=== PATIENT | female | born 1940 | race African-American/Black ===

== ENCOUNTER 2018-11-22 21:29 | Inpatient (IN) | payer MEDICARE ==
--- NOTE | 2018-11-23 01:01 | ED Physician Chart ---
ED Chief Complaint/HPI - Patient Information Allergies:: Allergies Allergy/AdvReac Type Severity Reaction Status Date / Time No Known Allergies Allergy Verified 11/22/18 21:49 Vitals:: Vital Signs - 8 hr 11/23/18 11/23/18 11/23/18 03:20 06:07 06:19 Temp 98.2 F 97.5 F 97.5 F HR 97 92 90 RR 18 15 15 BP 182/85 168/83 168/83 O2 Sat % 99 95 11/23/18 06:33 Temp 97.9 F HR 76 RR 18 BP 159/68 O2 Sat % <Ced Bernabe - Last Filed: 11/23/18 11:20> - Patient Information Date Seen:: 11/22/18 Time Seen:: 21:25 Chief Complaint:: [facility] prior to daughter notification Allergies:: Allergies Allergy/AdvReac Type Severity Reaction Status Date / Time No Known Allergies Allergy Verified 11/22/18 21:49 Vitals:: Vital Signs - 8 hr 11/22/18 21:30 Temp 98.1 F HR 100 RR 20 BP 161/82 O2 Sat % 98 <Domingo Feng - Last Filed: 12/06/18 23:14> ED Review of Systems - Review of Systems General/Constitutional: No fever (unable to accurate relate) <Domingo Feng - Last Filed: 12/06/18 23:14> ED Past Medical History - Past Medical History Obtainable: No Past Medical History: Dementia <Domingo Feng - Last Filed: 12/06/18 23:14> Family Medical History - Family Member Mother History Unknown: Yes <Domingo Feng - Last Filed: 12/06/18 23:14> ED Physical Exam - Physical Examination General/Constitutional: No distress, Non-toxic appearing Head: Atraumatic Eyes: Lids, conjuctiva normal Skin: Nl inspection ENMT: External ears, nose nl Neck: Nontender Respiratory: Nl effort/Exclusion Cardio Vascular: RRR GI: No tenderness/rebounding/guarding Extremities: Full ROM <Domingo Feng - Last Filed: 12/06/18 23:14> ED Labs/Radiology/EKG Results - Lab Results Results: Laboratory Tests 11/23/18 10:38 WBC 7.7 RBC 5.55 H Hgb 14.5 Hct 45.1 MCV 81.3 MCH 26.2 L MCHC Differential 32.2 RDW 13.5 Plt Count 275 MPV 9.1 Neutrophils % 60.7 Lymphocytes % 30.2 Monocytes % 7.9 Eosinophils % 0.9 Basophils % 0.3 Comments:: Reviewed - EKG Interpretations EKG Time:: 10:51 Rate & Rhythm: 71; NSR Comments:: non-specific st-t changes <Ced Bernabe - Last Filed: 11/23/18 11:20> ED Assessment - Assessment General Assessment: no distress in er talked to psychiatrist usman given option send back if family so wants talked to daughter requests pt back to same closer location daughter later request no change in er status until her presence in er <Domingo Feng - Last Filed: 12/06/18 23:14> ED Septic Shock - <6hrs of presentation: Vital Signs: Vital Signs - 8 hr 11/23/18 11/23/18 11/23/18 03:20 06:07 06:19 Temp 98.2 F 97.5 F 97.5 F HR 97 92 90 RR 18 15 15 BP 182/85 168/83 168/83 O2 Sat % 99 95 11/23/18 06:33 Temp 97.9 F HR 76 RR 18 BP 159/68 O2 Sat % <Ced Bernabe - Last Filed: 11/23/18 11:20> - <6hrs of presentation: Vital Signs: Vital Signs - 8 hr 11/22/18 21:30 Temp 98.1 F HR 100 RR 20 BP 161/82 O2 Sat % 98 <Domingo Feng - Last Filed: 12/06/18 23:14> ED Reassessment (Disposition) - Reassessment Reassessment Condition:: Improved - Diagnosis Diagnosis:: Agitation; Medical Clearance; Psychosis; UTI; Bipolar Disorder - Aftercare/Follow up Instructions Aftercare/Follow-Up Instructions:: Counseled pt regarding lab results/diagnosis & need follow up, Counseled pt & family regarding lab results/diagnosis & need follow up - Patient Disposition Discharge/Transfer:: Acute Care w/in this hosp Admitted to:: [facility] Condition at Disposition:: Stable, Improved <Ced Bernabe - Last Filed: 11/23/18 11:20> - Reassessment Reassessment Condition:: Unchanged - Patient Disposition Discharge/Transfer:: Residential/Boarding Care <Domingo Feng - Last Filed: 12/06/18 23:14>
[2018-11-23 10:46] LABS: % BASOPHILS 0.3 % (0.0-2.0); % EOSINOPHILS 0.9 % (0.0-5.0); % LYMPHOCYTES 30.2 % (20.0-50.0); % MONOCYTES 7.9 % (2.0-10.0); % NEUTROPHILS 60.7 % (40.0-80.0); EOSINOPHILE ABSOLUTE 0.1 Th/cmm (0.1-0.4); HEMATOCRIT 45.1 % (41.0-60); HEMOGLOBIN 14.5 gm/dL (12-16); LYMPHOCYTE ABSOLUTE 2.3 Th/cmm (1.5-3.0); MEAN CELL VOLUME 81.3 fl (81-100); MEAN CORPUSCULAR HEMOGLOBIN 26.2 pg (27.0-31.0); MEAN CORPUSCULAR HGB CONC 32.2 pg (28.0-36.0); MEAN PLATELET VOLUME 9.1 fl; MONOCYTE ABSOLUTE 0.6 Th/cmm (0.3-1.0); NEUTROPHILE ABSOLUTE 4.7 Th/cmm (1.8-8.0); PLATELET COUNT 275 Th/cmm (150-400); RED BLOOD COUNT 5.55 Mil/cmm (3.80-5.20); RED CELL DISTRIBUTION WIDTH 13.5 % (11.5-20.0); WHITE BLOOD COUNT 7.7 Th/cmm (4.8-10.8)
[2018-11-23 10:55] LABS: URINE SOURCE CLEAN C
[2018-11-23 10:59] LABS: URINE BILIRUBIN NEGATIVE (NEGATIVE); URINE BLOOD TRACE (NEGATIVE); URINE GLUCOSE (UA) NEGATIVE (NEGATIVE); URINE KETONE NEGATIVE (NEGATIVE); URINE LEUKOCYTE ESTERASE MODERATE (NEGATIVE); URINE MICROSCOPIC INDICATED? YES; URINE NITRATE NEGATIVE (NEGATIVE); URINE PH 5.5 (4.6 - 8.0); URINE PROTEIN NEGATIVE (NEGATIVE); URINE UROBILINOGEN 0.2 E.U./dL (0.2 - 1.0)
[2018-11-23 11:02] LABS: AMPHETAMINE URINE NEGATIVE (NEGATIVE); BARBITURATES URINE NEGATIVE (NEGATIVE); BENZODIAZEPINES QUAL URINE NEGATIVE (NEGATIVE); CANNABINOID THC NEGATIVE (NEGATIVE); COCAINE METABOLITE QUAL URINE NEGATIVE (NEGATIVE); METHADONE URINE NEGATIVE (NEGATIVE); METHAMPHETAMINES QUAL URINE NEGATIVE (NEGATIVE); OPIATES (MORPHINE) QUAL. URINE NEGATIVE (NEGATIVE); PHENCYCLIDINE (PCP) URINE NEGATIVE (NEGATIVE); TRICYCLICS (TCA) QUAL. URINE NEGATIVE (NEGATIVE)
[2018-11-23 11:07] LABS: ALB/GLOB RATIO 1.3 (1.0-1.8); ALBUMIN 4.6 gm/dL (3.7-5.3); ALKALINE PHOSPHATASE 79 U/L (34-104); ANION GAP 13.2 (7.0-16.0); BILIRUBIN,TOTAL 0.8 mg/dL (0.3-1.0); BUN - UREA NITROGEN 11 mg/dL (7-25); CALCIUM SERUM 10.2 mg/dL (8.6-10.3); CARBON DIOXIDE 29.3 mEq/L (21.0-31.0); CHLORIDE 103 mEq/L (98-107); CHOLESTEROL 199 mg/dL (<200); CREATININE - SERUM 0.8 mg/dL (0.6-1.2); GLUCOSE 105 mg/dL (70-105); HDL -HIGH DENSITY LIPOPROTEIN 49 mg/dL (23-92); POTASSIUM SERUM 3.5 mEq/L (3.5-5.1); SGOT 20 U/L (13-39); SGPT/ALT 14 U/L (7-52); SODIUM SERUM 142 mEq/L (136-145); TOTAL PROTEIN,SERUM 8.1 gm/dL (6.0-8.3); TRIGLYCERIDES 76 mg/dL (<150)
[2018-11-23 11:13] LABS: ACETAMINOPHEN < 10.0 ug/mL (10.0-30.0); SALICYLATES (ASPIRIN) < 25.0 mg/L (30.0-100.0)
[2018-11-23 11:20] LABS: URINE CLARITY CLOUDY (CLEAR); URINE COLOR YELLOW
[2018-11-23 11:21] LABS: URINE RBC 0-2 /hpf (0-5)
[2018-11-23 11:23] LABS: URINE BACTERIA FEW /hpf (NONE SEEN); URINE EPITHELIAL CELLS MODERATE /lpf (FEW); URINE WBC 50-100 /hpf (0-5)
[2018-11-23 13:46] VITALS: BP 160/70
[2018-11-23] MEDS ORDERED: Magnesium Hydroxide (MOM) 30 mL UDC PO PRN ×2 (13:47→15:16)
[2018-11-23] MEDS ORDERED: Maalox 30 mL Cup PO PRN (13:47)
[2018-11-23] MEDS ORDERED: Fleet Enema 135 mL RC PRN (15:16)
[2018-11-23] MEDS ORDERED: Acetaminophen 500 MG TAB PO PRN (15:16)
--- NOTE | 2018-11-23 15:24 | History and Physical ---
History of Present Illness - HPI Chief Complaint: psychosis HPI: 78 y/o female who presents to [facility] for change in behavior noted at the SNF with increased agitation. Initial labwork done in the ER revealed the following... WBC 7.7 H/H 14.5/45.1 plat 275 Na 142 K 3.5 Bun/Cr 11/0.8 glu 105 AST 20 ALT 14 Alk 79 TSH 1.33 chol 199 LDL 145 HDL 49 UA cloudy Leuko moderate WBCs 50-100 PMH Hyperlipidemia, HTN, Depression/Anxiety, Vital Signs: Last Vital Signs Temp 98.1 F 11/23/18 13:55 Pulse 82 11/23/18 13:55 Resp 18 11/23/18 13:55 BP 160/70 11/23/18 13:55 Pulse Ox 96 11/23/18 13:55 Past Medical History Cardiovascular: Report: HTN, Hyperlipidemia Pulmonary: Report: No Pertinent Hx BANK [employer]ER: Report: No Pertinent Hx GI: Report: No Pertinent Hx Psych: Report: Anxiety, Depression, Psychosis Musculoskeletal: Report: No Pertinent Hx Rheumatologic: Report: No pertinent Hx Infectious Disease: Report: No Pertinent Hx Renal/: Report: No Pertinent Hx Endocrine: Report: No Pertinent Hx Dermatology: Report: No Pertinent Hx Family Medical History - Family Member Mother History Unknown: Yes Social History Smoke: No Alcohol: None Drugs: None Lives: Correction - Medications Home Medications: Home Medication Medication Instructions Recorded Type Acetaminophen [Tylenol Extra 1,000 mg PO Q4HR PRN 11/22/18 History Strength] Acetaminophen [Tylenol] 325 mg PO Q4HR PRN 11/22/18 History Atorvastatin Calcium [Lipitor] 20 mg PO HS 11/22/18 History Bisacodyl [Dulcolax 10 Mg Supp] 10 mg RC DAILY PRN 11/22/18 History Fleet Enema 1 dose RC DAILY PRN 11/22/18 History Latanoprost/Pf [Latanoprost 0.005% 1 drop EACH EYE QPM 11/22/18 History Eye Drop] Lisinopril 10 mg PO DAILY 11/22/18 History Lorazepam [Ativan] 0.5 mg PO BID PRN 11/22/18 History Magnesium Hydroxide [Milk of 30 ml PO DAILY PRN 11/22/18 History Magnesia] Olanzapine 2.5 mg PO DAILY 11/22/18 History - Allergies Allergies/Adverse Reactions: Allergies Allergy/AdvReac Type Severity Reaction Status Date / Time No Known Allergies Allergy Verified 11/22/18 21:49 Review of Systems - Review of Systems Constitutional: Report: No Significant Eyes: Report: No Significant ENT: Report: No Significant Respiratory: Report: No Significant Cardiovascular: Report: No Significant Gastrointestinal: Report: No Significant Genitourinary: Report: No Significant Musculoskeletal: Report: No Significant Skin: Report: No Significant Neurological: Report: No Significant Physical Exam - Physical Exam HEENT: Report: Ears Nose Throat within normal limits, Pharnyx within normal limits Neck: Report: Within normal limits Cardiovascular Systems: Report: +s1/s2 noted, Regular, Rate and Rhythm Respiratory: Report: Breath Sounds are within normal limits Abdomen: Report: Non-tender to palpation Back: Report: Inspection of back is within normal limits. Extremities: Report: Non-tender to palpation. Skin: Report: Color of skin is within normal limits - Lab Results All Lab Results last 24 hours: Laboratory Results - last 24 hr 11/23/18 11/23/18 11/23/18 00:45 00:45 10:38 WBC 7.7 RBC 5.55 H Hgb 14.5 Hct 45.1 MCV 81.3 MCH 26.2 L MCHC Differential 32.2 RDW 13.5 Plt Count 275 MPV 9.1 Neutrophils % 60.7 Lymphocytes % 30.2 Monocytes % 7.9 Eosinophils % 0.9 Basophils % 0.3 Sodium Potassium Chloride Carbon Dioxide Anion Gap BUN Creatinine Est GFR ( Amer) Est GFR (Non-Af Amer) BUN/Creatinine Ratio Glucose Calcium Total Bilirubin AST ALT Alkaline Phosphatase Troponin I Total Protein Albumin Globulin Albumin/Globulin Ratio Triglycerides Cholesterol LDL Cholesterol Direct HDL Cholesterol TSH Urine Source CLEAN C Urine Color YELLOW Urine Clarity CLOUDY H Urine pH 5.5 Ur Specific [place] >= 1.030 Urine Protein NEGATIVE Urine Glucose (UA) NEGATIVE Urine Ketones NEGATIVE Urine Blood TRACE Urine Nitrate NEGATIVE Urine Bilirubin NEGATIVE Urine Urobilinogen 0.2 Ur Leukocyte Esterase MODERATE H Urine RBC 0-2 Urine WBC 50-100 H Ur Epithelial Cells MODERATE Urine Bacteria FEW Salicylates Urine Opiates Screen NEGATIVE Urine Methadone Screen NEGATIVE Acetaminophen Ur Barbiturates Screen NEGATIVE Ur Tricyclics Screen NEGATIVE Ur Phencyclidine Scrn NEGATIVE Amphetamines Screen NEGATIVE U Methamphetamines Scrn NEGATIVE U Benzodiazepines Scrn NEGATIVE U Cocaine Metab Screen NEGATIVE U Cannabinoids Screen NEGATIVE Ethyl Alcohol 11/23/18 11/23/18 11/23/18 10:38 10:38 10:38 WBC RBC Hgb Hct MCV MCH MCHC Differential RDW Plt Count MPV Neutrophils % Lymphocytes % Monocytes % Eosinophils % Basophils % Sodium 142 Potassium 3.5 Chloride 103 Carbon Dioxide 29.3 Anion Gap 13.2 BUN 11 Creatinine 0.8 Est GFR ( Amer) TNP Est GFR (Non-Af Amer) TNP BUN/Creatinine Ratio 13.8 Glucose 105 Calcium 10.2 Total Bilirubin 0.8 AST 20 ALT 14 Alkaline Phosphatase 79 Troponin I 0.01 Total Protein 8.1 Albumin 4.6 Globulin 3.5 Albumin/Globulin Ratio 1.3 Triglycerides 76 Cholesterol 199 LDL Cholesterol Direct 145 HDL Cholesterol 49 TSH 1.33 Urine Source Urine Color Urine Clarity Urine pH Ur Specific [place] Urine Protein Urine Glucose (UA) Urine Ketones Urine Blood Urine Nitrate Urine Bilirubin Urine Urobilinogen Ur Leukocyte Esterase Urine RBC Urine WBC Ur Epithelial Cells Urine Bacteria Salicylates < 25.0 L Urine Opiates Screen Urine Methadone Screen Acetaminophen < 10.0 L Ur Barbiturates Screen Ur Tricyclics Screen Ur Phencyclidine Scrn Amphetamines Screen U Methamphetamines Scrn U Benzodiazepines Scrn U Cocaine Metab Screen U Cannabinoids Screen Ethyl Alcohol < 10 - Assessment Assessment: psychosis HTN UTI Hyperlipidemia Depression/Anxiety - Plan Plan: admit to [facility] will continue home meds.
[2018-11-23] MEDS: Sulfamethoxazole/TMP 800/160mg Tab PO SCH (17:22)
[2018-11-23] MEDS: Atorvastatin Calcium 10 MG TAB PO SCH (23:50)
[2018-11-24] MEDS: Multivitamin Tab PO SCH (08:47)
[2018-11-24] MEDS: Sulfamethoxazole/TMP 800/160mg Tab PO SCH ×2 (08:47→16:59)
--- NOTE | 2018-11-24 12:49 | Psychiatric Evaluation ---
DATE OF SERVICE: 11/23/2018 The patient is admitted for increased confusion, combative behaviors, trying to harm others. HISTORY OF PRESENT ILLNESS: An 78-year-old female with worsening confusion and combative behavior, requiring restraints when she came to the Emergency Room. The patient was attacking staff, really aggressive and violent. The patient is apparently with a tendency of walking and pacing around the room, speaking in random phrases. On [id number], the patient is not talking to me whatsoever. The [place] [facility] facility is having trouble managing the patient because of her behaviors and would like medication adjustments. PAST PSYCHIATRIC HISTORY: At this point, it is unclear and we will try to increase collateral, concerns for an underlying dementia. SOCIAL HISTORY: Daughter involved. The patient is coming from a [place] [facility] facility. They are willing to take the patient back upon further stabilization. MEDICAL: Noted. MENTAL STATUS EXAMINATION: Stated age, refusing to speak with me, mumbling something, unclear thought processes, unclear SI or HI, unclear psychosis. Poor insight, poor judgment, poor impulse control. PROVISIONAL DIAGNOSES: Concerns for dementia and anxiety, unspecified; mood, unspecified. MEDICAL: Please see full H and P. ESTIMATED LENGTH OF STAY: 5-7 days. ASSESSMENT: The patient is requiring hospitalization, combative, aggressive, violent, trying to hurt staff, needing restraints. PLAN: Adjust and titrate medications, increase collateral. TREATMENT PLAN: Includes group as well as milieu therapy. CONDITIONS FOR DISCHARGE: Improved mood, improved affect, better control of her aggressive and violent behaviors. [facility]# [id number]
[2018-11-24] MEDS: Atorvastatin Calcium 10 MG TAB PO SCH (21:00)
--- NOTE | 2018-11-25 06:39 | General Progress Note ---
Subjective - Review of Systems Service Date: 11/25/18 Subjective: Awake, Aler, afebrile. VS T 97.5 P 74 BP 148/83 R 20 Objective - Results Result Diagrams: 11/23/18 10:38 11/23/18 10:38 Recent Labs: Laboratory Last Values WBC 7.7 Th/cmm (4.8-10.8) 11/23/18 10:38 RBC 5.55 Mil/cmm (3.80-5.20) H 11/23/18 10:38 Hgb 14.5 gm/dL (12-16) 11/23/18 10:38 Hct 45.1 % (41.0-60) 11/23/18 10:38 MCV 81.3 fl (81-100) 11/23/18 10:38 MCH 26.2 pg (27.0-31.0) L 11/23/18 10:38 MCHC Differential 32.2 pg (28.0-36.0) 11/23/18 10:38 RDW 13.5 % (11.5-20.0) 11/23/18 10:38 Plt Count 275 Th/cmm (150-400) 11/23/18 10:38 MPV 9.1 fl 11/23/18 10:38 Neutrophils % 60.7 % (40.0-80.0) 11/23/18 10:38 Lymphocytes % 30.2 % (20.0-50.0) 11/23/18 10:38 Monocytes % 7.9 % (2.0-10.0) 11/23/18 10:38 Eosinophils % 0.9 % (0.0-5.0) 11/23/18 10:38 Basophils % 0.3 % (0.0-2.0) 11/23/18 10:38 Sodium 142 mEq/L (136-145) 11/23/18 10:38 Potassium 3.5 mEq/L (3.5-5.1) 11/23/18 10:38 Chloride 103 mEq/L (98-107) 11/23/18 10:38 Carbon Dioxide 29.3 mEq/L (21.0-31.0) 11/23/18 10:38 Anion Gap 13.2 (7.0-16.0) 11/23/18 10:38 BUN 11 mg/dL (7-25) 11/23/18 10:38 Creatinine 0.8 mg/dL (0.6-1.2) 11/23/18 10:38 Est GFR ( Amer) TNP 11/23/18 10:38 Est GFR (Non-Af Amer) TNP 11/23/18 10:38 BUN/Creatinine Ratio 13.8 11/23/18 10:38 Glucose 105 mg/dL (70-105) 11/23/18 10:38 Calcium 10.2 mg/dL (8.6-10.3) 11/23/18 10:38 Total Bilirubin 0.8 mg/dL (0.3-1.0) 11/23/18 10:38 AST 20 U/L (13-39) 11/23/18 10:38 ALT 14 U/L (7-52) 11/23/18 10:38 Alkaline Phosphatase 79 U/L (34-104) 11/23/18 10:38 Troponin I 0.01 ng/mL (0.01-0.05) 11/23/18 10:38 Total Protein 8.1 gm/dL (6.0-8.3) 11/23/18 10:38 Albumin 4.6 gm/dL (3.7-5.3) 11/23/18 10:38 Globulin 3.5 gm/dL 11/23/18 10:38 Albumin/Globulin Ratio 1.3 (1.0-1.8) 11/23/18 10:38 Triglycerides 76 mg/dL (<150) 11/23/18 10:38 Cholesterol 199 mg/dL (<200) 11/23/18 10:38 LDL Cholesterol Direct 145 mg/dL (75-193) 11/23/18 10:38 HDL Cholesterol 49 mg/dL (23-92) 11/23/18 10:38 TSH 1.33 uIU/ml (0.34-5.60) 11/23/18 10:38 Urine Source CLEAN C 11/23/18 00:45 Urine Color YELLOW 11/23/18 00:45 Urine Clarity CLOUDY (CLEAR) H 11/23/18 00:45 Urine pH 5.5 (4.6 - 8.0) 11/23/18 00:45 Ur Specific [place] >= 1.030 (1.005-1.030) 11/23/18 00:45 Urine Protein NEGATIVE mg/dL (NEGATIVE) 11/23/18 00:45 Urine Glucose (UA) NEGATIVE mg/dL (NEGATIVE) 11/23/18 00:45 Urine Ketones NEGATIVE mg/dL (NEGATIVE) 11/23/18 00:45 Urine Blood TRACE (NEGATIVE) 11/23/18 00:45 Urine Nitrate NEGATIVE (NEGATIVE) 11/23/18 00:45 Urine Bilirubin NEGATIVE (NEGATIVE) 11/23/18 00:45 Urine Urobilinogen 0.2 E.U./dL (0.2 - 1.0) 11/23/18 00:45 Ur Leukocyte Esterase MODERATE (NEGATIVE) H 11/23/18 00:45 Urine RBC 0-2 /hpf (0-5) 11/23/18 00:45 Urine WBC 50-100 /hpf (0-5) H 11/23/18 00:45 Ur Epithelial Cells MODERATE /lpf (FEW) 11/23/18 00:45 Urine Bacteria FEW /hpf (NONE SEEN) 11/23/18 00:45 Salicylates < 25.0 mg/L (30.0-100.0) L 11/23/18 10:38 Urine Opiates Screen NEGATIVE (NEGATIVE) 11/23/18 00:45 Urine Methadone Screen NEGATIVE (NEGATIVE) 11/23/18 00:45 Acetaminophen < 10.0 ug/mL (10.0-30.0) L 11/23/18 10:38 Ur Barbiturates Screen NEGATIVE (NEGATIVE) 11/23/18 00:45 Ur Tricyclics Screen NEGATIVE (NEGATIVE) 11/23/18 00:45 Ur Phencyclidine Scrn NEGATIVE (NEGATIVE) 11/23/18 00:45 Amphetamines Screen NEGATIVE (NEGATIVE) 11/23/18 00:45 U Methamphetamines Scrn NEGATIVE (NEGATIVE) 11/23/18 00:45 U Benzodiazepines Scrn NEGATIVE (NEGATIVE) 11/23/18 00:45 U Cocaine Metab Screen NEGATIVE (NEGATIVE) 11/23/18 00:45 U Cannabinoids Screen NEGATIVE (NEGATIVE) 11/23/18 00:45 Ethyl Alcohol < 10 mg/dL (0-10) 11/23/18 10:38 - Physical Exam Vitals and I&O: Vital Signs Temp 97.5 F 11/25/18 06:00 Pulse 74 11/25/18 06:00 Resp 20 11/25/18 06:00 BP 148/83 11/25/18 06:00 Pulse Ox 99 11/25/18 06:00 Intake & Output 11/24/18 11/24/18 11/25/18 06:59 18:59 06:59 Intake Total 300 480 Balance 300 480 Intake: Oral 300 480 Other: # Voids 2 2 Active Medications: Current Medications Acetaminophen (Tylenol) 650 mg PO Q4HR PRN PRN Reason: Mild Pain / Temp above 100 Stop: 01/22/19 13:46 Acetaminophen (Tylenol) 325 mg PO Q4HR PRN PRN Reason: Pain (Moderate) Stop: 01/22/19 15:15 Acetaminophen (Tylenol Extra Strength) 1,000 mg PO Q4HR PRN PRN Reason: Pain (Moderate) Stop: 01/22/19 15:15 Last Admin: 11/24/18 08:49 Dose: 1,000 mg Al Hydrox/Mg Hydrox/Simethicone (Maalox) 30 ml PO Q4HR PRN PRN Reason: GI DISTRESS Stop: 01/22/19 13:46 Atorvastatin Calcium (Lipitor) 20 mg PO HS MATT Stop: 01/22/19 20:59 Last Admin: 11/24/18 21:00 Dose: 20 mg Bisacodyl (Dulcolax 10 Mg Supp) 10 mg RC DAILY PRN PRN Reason: IF MOM INEFFECTIVE Stop: 01/22/19 15:15 Latanoprost (Xalatan 0.005% Ophth Soln) 1 drop EACH EYE QPM MATT Stop: 01/22/19 16:59 Last Admin: 11/24/18 16:59 Dose: 1 drop Lisinopril (Zestril) 10 mg PO DAILY MATT Stop: 01/23/19 08:59 Last Admin: 11/24/18 08:47 Dose: Not Given Lorazepam (Ativan) 0.5 mg PO Q4HR PRN; Protocol PRN Reason: Agitation Stop: 12/23/18 13:46 Last Admin: 11/24/18 21:16 Dose: 0.5 mg Magnesium Hydroxide (Milk Of Magnesia) 30 ml PO HS PRN PRN Reason: Constipation Magnesium Hydroxide (Milk Of Magnesia) 30 ml PO DAILY PRN PRN Reason: Constipation Stop: 01/22/19 15:15 Memantine (Namenda) 5 mg PO DAILY [facility] Stop: 01/24/19 08:59 Multivitamins/Vitamin C (Theragran) 1 tab PO DAILY MATT Stop: 01/23/19 08:59 Last Admin: 11/24/18 08:47 Dose: 1 tab Sodium Phosphate (Fleet Enema) 135 ml RC DAILY PRN PRN Reason: IF DULCOLAX INEFFECTIVE Stop: 01/22/19 15:15 Trimethoprim/Sulfamethoxazole (Bactrim Ds) 1 tab PO BID [facility] Stop: 01/22/19 16:59 Last Admin: 11/24/18 16:59 Dose: 1 tab Zolpidem Tartrate (Ambien) 5 mg PO HS PRN PRN Reason: Insomnia Stop: 01/22/19 13:46 Last Admin: 11/24/18 21:16 Dose: 5 mg General: Alert, No acute distress HEENT: Atraumatic, PERRLA Neck: Supple Cardiovascular: Regular rate, Normal S1, Normal S2 Lungs: Clear to auscultation Abdomen: Bowel sounds Extremities: no Clubbing, no Cyanosis, no Edema Assessment/Plan - Assessment Assessment: psychosis HTN UTI + Hyperlipidemia Depression/Anxiety - Plan Plan: admit to [facility] will continue home meds.
[2018-11-25] MEDS: Multivitamin Tab PO SCH (08:36)
[2018-11-25] MEDS: Sulfamethoxazole/TMP 800/160mg Tab PO SCH ×2 (08:36→17:41)
--- NOTE | 2018-11-25 10:51 | Progress Notes ---
DATE: 11/24/2018 SUBJECTIVE: An 78-year-old female with worsening confusion, combative behaviors, had been attacking staff, very aggressive, violent. On [id number], the patient is AO to name only. She has no idea where she is or what is going on, states the year is 1989, does not know the month, had been refusing to speak with me yesterday, but today is answering questions, but she is completely confused about things. Per staff, grandson came to visit. No agitation, no irritability. The patient at times not eating, per staff AO to name only, confused, easily agitated, restless at times. History of dementia. ASSESSMENT: The patient is confused, AO to name, concerns for violent and aggressive behaviors. Given her violent and aggressive behaviors up on admission. Medications were noted. We will consider Sylvie Golden. [facility]# [id number]
[2018-11-25] MEDS: Atorvastatin Calcium 10 MG TAB PO SCH (21:53)
--- NOTE | 2018-11-26 06:07 | General Progress Note ---
Subjective - Review of Systems Service Date: 11/26/18 Subjective: Awake, Aler, afebrile. VS T 98.4 P 66 BP 133/66 R 20 Objective - Results Result Diagrams: 11/23/18 10:38 11/23/18 10:38 Recent Labs: Laboratory Last Values WBC 7.7 Th/cmm (4.8-10.8) 11/23/18 10:38 RBC 5.55 Mil/cmm (3.80-5.20) H 11/23/18 10:38 Hgb 14.5 gm/dL (12-16) 11/23/18 10:38 Hct 45.1 % (41.0-60) 11/23/18 10:38 MCV 81.3 fl (81-100) 11/23/18 10:38 MCH 26.2 pg (27.0-31.0) L 11/23/18 10:38 MCHC Differential 32.2 pg (28.0-36.0) 11/23/18 10:38 RDW 13.5 % (11.5-20.0) 11/23/18 10:38 Plt Count 275 Th/cmm (150-400) 11/23/18 10:38 MPV 9.1 fl 11/23/18 10:38 Neutrophils % 60.7 % (40.0-80.0) 11/23/18 10:38 Lymphocytes % 30.2 % (20.0-50.0) 11/23/18 10:38 Monocytes % 7.9 % (2.0-10.0) 11/23/18 10:38 Eosinophils % 0.9 % (0.0-5.0) 11/23/18 10:38 Basophils % 0.3 % (0.0-2.0) 11/23/18 10:38 Sodium 142 mEq/L (136-145) 11/23/18 10:38 Potassium 3.5 mEq/L (3.5-5.1) 11/23/18 10:38 Chloride 103 mEq/L (98-107) 11/23/18 10:38 Carbon Dioxide 29.3 mEq/L (21.0-31.0) 11/23/18 10:38 Anion Gap 13.2 (7.0-16.0) 11/23/18 10:38 BUN 11 mg/dL (7-25) 11/23/18 10:38 Creatinine 0.8 mg/dL (0.6-1.2) 11/23/18 10:38 Est GFR ( Amer) TNP 11/23/18 10:38 Est GFR (Non-Af Amer) TNP 11/23/18 10:38 BUN/Creatinine Ratio 13.8 11/23/18 10:38 Glucose 105 mg/dL (70-105) 11/23/18 10:38 Calcium 10.2 mg/dL (8.6-10.3) 11/23/18 10:38 Total Bilirubin 0.8 mg/dL (0.3-1.0) 11/23/18 10:38 AST 20 U/L (13-39) 11/23/18 10:38 ALT 14 U/L (7-52) 11/23/18 10:38 Alkaline Phosphatase 79 U/L (34-104) 11/23/18 10:38 Troponin I 0.01 ng/mL (0.01-0.05) 11/23/18 10:38 Total Protein 8.1 gm/dL (6.0-8.3) 11/23/18 10:38 Albumin 4.6 gm/dL (3.7-5.3) 11/23/18 10:38 Globulin 3.5 gm/dL 11/23/18 10:38 Albumin/Globulin Ratio 1.3 (1.0-1.8) 11/23/18 10:38 Triglycerides 76 mg/dL (<150) 11/23/18 10:38 Cholesterol 199 mg/dL (<200) 11/23/18 10:38 LDL Cholesterol Direct 145 mg/dL (75-193) 11/23/18 10:38 HDL Cholesterol 49 mg/dL (23-92) 11/23/18 10:38 TSH 1.33 uIU/ml (0.34-5.60) 11/23/18 10:38 Urine Source CLEAN C 11/23/18 00:45 Urine Color YELLOW 11/23/18 00:45 Urine Clarity CLOUDY (CLEAR) H 11/23/18 00:45 Urine pH 5.5 (4.6 - 8.0) 11/23/18 00:45 Ur Specific [place] >= 1.030 (1.005-1.030) 11/23/18 00:45 Urine Protein NEGATIVE mg/dL (NEGATIVE) 11/23/18 00:45 Urine Glucose (UA) NEGATIVE mg/dL (NEGATIVE) 11/23/18 00:45 Urine Ketones NEGATIVE mg/dL (NEGATIVE) 11/23/18 00:45 Urine Blood TRACE (NEGATIVE) 11/23/18 00:45 Urine Nitrate NEGATIVE (NEGATIVE) 11/23/18 00:45 Urine Bilirubin NEGATIVE (NEGATIVE) 11/23/18 00:45 Urine Urobilinogen 0.2 E.U./dL (0.2 - 1.0) 11/23/18 00:45 Ur Leukocyte Esterase MODERATE (NEGATIVE) H 11/23/18 00:45 Urine RBC 0-2 /hpf (0-5) 11/23/18 00:45 Urine WBC 50-100 /hpf (0-5) H 11/23/18 00:45 Ur Epithelial Cells MODERATE /lpf (FEW) 11/23/18 00:45 Urine Bacteria FEW /hpf (NONE SEEN) 11/23/18 00:45 Salicylates < 25.0 mg/L (30.0-100.0) L 11/23/18 10:38 Urine Opiates Screen NEGATIVE (NEGATIVE) 11/23/18 00:45 Urine Methadone Screen NEGATIVE (NEGATIVE) 11/23/18 00:45 Acetaminophen < 10.0 ug/mL (10.0-30.0) L 11/23/18 10:38 Ur Barbiturates Screen NEGATIVE (NEGATIVE) 11/23/18 00:45 Ur Tricyclics Screen NEGATIVE (NEGATIVE) 11/23/18 00:45 Ur Phencyclidine Scrn NEGATIVE (NEGATIVE) 11/23/18 00:45 Amphetamines Screen NEGATIVE (NEGATIVE) 11/23/18 00:45 U Methamphetamines Scrn NEGATIVE (NEGATIVE) 11/23/18 00:45 U Benzodiazepines Scrn NEGATIVE (NEGATIVE) 11/23/18 00:45 U Cocaine Metab Screen NEGATIVE (NEGATIVE) 11/23/18 00:45 U Cannabinoids Screen NEGATIVE (NEGATIVE) 11/23/18 00:45 Ethyl Alcohol < 10 mg/dL (0-10) 11/23/18 10:38 - Physical Exam Vitals and I&O: Vital Signs Temp 98.4 F 11/25/18 20:00 Pulse 66 11/25/18 20:00 Resp 20 11/25/18 20:00 BP 133/66 11/25/18 20:00 Pulse Ox 96 11/25/18 20:00 Intake & Output 11/25/18 11/25/18 11/26/18 06:59 18:59 06:59 Intake Total 480 100 Balance 480 100 Intake: Oral 480 100 Other: # Voids 2 Active Medications: Current Medications Acetaminophen (Tylenol) 650 mg PO Q4HR PRN PRN Reason: Mild Pain / Temp above 100 Stop: 01/22/19 13:46 Acetaminophen (Tylenol) 325 mg PO Q4HR PRN PRN Reason: Pain (Moderate) Stop: 01/22/19 15:15 Acetaminophen (Tylenol Extra Strength) 1,000 mg PO Q4HR PRN PRN Reason: Pain (Moderate) Stop: 01/22/19 15:15 Last Admin: 11/24/18 08:49 Dose: 1,000 mg Al Hydrox/Mg Hydrox/Simethicone (Maalox) 30 ml PO Q4HR PRN PRN Reason: GI DISTRESS Stop: 01/22/19 13:46 Atorvastatin Calcium (Lipitor) 20 mg PO HS MATT Stop: 01/22/19 20:59 Last Admin: 11/25/18 21:53 Dose: Not Given Bisacodyl (Dulcolax 10 Mg Supp) 10 mg RC DAILY PRN PRN Reason: IF MOM INEFFECTIVE Stop: 01/22/19 15:15 Latanoprost (Xalatan 0.005% Ophth Soln) 1 drop EACH EYE QPM MATT Stop: 01/22/19 16:59 Last Admin: 11/25/18 17:41 Dose: Not Given Lisinopril (Zestril) 10 mg PO DAILY MATT Stop: 01/23/19 08:59 Last Admin: 11/25/18 08:35 Dose: Not Given Lorazepam (Ativan) 0.5 mg PO Q4HR PRN; Protocol PRN Reason: Agitation Stop: 12/23/18 13:46 Last Admin: 11/24/18 21:16 Dose: 0.5 mg Magnesium Hydroxide (Milk Of Magnesia) 30 ml PO HS PRN PRN Reason: Constipation Magnesium Hydroxide (Milk Of Magnesia) 30 ml PO DAILY PRN PRN Reason: Constipation Stop: 01/22/19 15:15 Memantine (Namenda) 5 mg PO DAILY [facility] Stop: 01/24/19 08:59 Last Admin: 11/25/18 08:36 Dose: Not Given Multivitamins/Vitamin C (Theragran) 1 tab PO DAILY MATT Stop: 01/23/19 08:59 Last Admin: 11/25/18 08:36 Dose: Not Given Sodium Phosphate (Fleet Enema) 135 ml RC DAILY PRN PRN Reason: IF DULCOLAX INEFFECTIVE Stop: 01/22/19 15:15 Trimethoprim/Sulfamethoxazole (Bactrim Ds) 1 tab PO BID MATT Stop: 01/22/19 16:59 Last Admin: 11/25/18 17:41 Dose: 1 tab Zolpidem Tartrate (Ambien) 5 mg PO HS PRN PRN Reason: Insomnia Stop: 01/22/19 13:46 Last Admin: 11/24/18 21:16 Dose: 5 mg General: Alert, No acute distress HEENT: Atraumatic, PERRLA Neck: Supple Cardiovascular: Regular rate, Normal S1, Normal S2 Lungs: Clear to auscultation Abdomen: Bowel sounds Extremities: no Clubbing, no Cyanosis, no Edema Assessment/Plan - Assessment Assessment: psychosis HTN UTI +ESBL Hyperlipidemia Depression/Anxiety - Plan Plan: admit to [facility] will continue home meds.
[2018-11-26] MEDS: Multivitamin Tab PO SCH (09:52)
[2018-11-26] MEDS: Sulfamethoxazole/TMP 800/160mg Tab PO SCH ×2 (09:53→16:29)
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
[2018-11-26] MEDS: Atorvastatin Calcium 10 MG TAB PO SCH (21:11)
--- NOTE | 2018-11-27 06:17 | General Progress Note ---
Subjective - Review of Systems Service Date: 11/27/18 Subjective: Awake, Aler, afebrile. VS T 98.2 P 69 BP 134/73 R 18 Objective - Results Result Diagrams: 11/23/18 10:38 11/23/18 10:38 Recent Labs: Laboratory Last Values WBC 7.7 Th/cmm (4.8-10.8) 11/23/18 10:38 RBC 5.55 Mil/cmm (3.80-5.20) H 11/23/18 10:38 Hgb 14.5 gm/dL (12-16) 11/23/18 10:38 Hct 45.1 % (41.0-60) 11/23/18 10:38 MCV 81.3 fl (81-100) 11/23/18 10:38 MCH 26.2 pg (27.0-31.0) L 11/23/18 10:38 MCHC Differential 32.2 pg (28.0-36.0) 11/23/18 10:38 RDW 13.5 % (11.5-20.0) 11/23/18 10:38 Plt Count 275 Th/cmm (150-400) 11/23/18 10:38 MPV 9.1 fl 11/23/18 10:38 Neutrophils % 60.7 % (40.0-80.0) 11/23/18 10:38 Lymphocytes % 30.2 % (20.0-50.0) 11/23/18 10:38 Monocytes % 7.9 % (2.0-10.0) 11/23/18 10:38 Eosinophils % 0.9 % (0.0-5.0) 11/23/18 10:38 Basophils % 0.3 % (0.0-2.0) 11/23/18 10:38 Sodium 142 mEq/L (136-145) 11/23/18 10:38 Potassium 3.5 mEq/L (3.5-5.1) 11/23/18 10:38 Chloride 103 mEq/L (98-107) 11/23/18 10:38 Carbon Dioxide 29.3 mEq/L (21.0-31.0) 11/23/18 10:38 Anion Gap 13.2 (7.0-16.0) 11/23/18 10:38 BUN 11 mg/dL (7-25) 11/23/18 10:38 Creatinine 0.8 mg/dL (0.6-1.2) 11/23/18 10:38 Est GFR ( Amer) TNP 11/23/18 10:38 Est GFR (Non-Af Amer) TNP 11/23/18 10:38 BUN/Creatinine Ratio 13.8 11/23/18 10:38 Glucose 105 mg/dL (70-105) 11/23/18 10:38 Calcium 10.2 mg/dL (8.6-10.3) 11/23/18 10:38 Total Bilirubin 0.8 mg/dL (0.3-1.0) 11/23/18 10:38 AST 20 U/L (13-39) 11/23/18 10:38 ALT 14 U/L (7-52) 11/23/18 10:38 Alkaline Phosphatase 79 U/L (34-104) 11/23/18 10:38 Troponin I 0.01 ng/mL (0.01-0.05) 11/23/18 10:38 Total Protein 8.1 gm/dL (6.0-8.3) 11/23/18 10:38 Albumin 4.6 gm/dL (3.7-5.3) 11/23/18 10:38 Globulin 3.5 gm/dL 11/23/18 10:38 Albumin/Globulin Ratio 1.3 (1.0-1.8) 11/23/18 10:38 Triglycerides 76 mg/dL (<150) 11/23/18 10:38 Cholesterol 199 mg/dL (<200) 11/23/18 10:38 LDL Cholesterol Direct 145 mg/dL (75-193) 11/23/18 10:38 HDL Cholesterol 49 mg/dL (23-92) 11/23/18 10:38 TSH 1.33 uIU/ml (0.34-5.60) 11/23/18 10:38 Urine Source CLEAN C 11/23/18 00:45 Urine Color YELLOW 11/23/18 00:45 Urine Clarity CLOUDY (CLEAR) H 11/23/18 00:45 Urine pH 5.5 (4.6 - 8.0) 11/23/18 00:45 Ur Specific [place] >= 1.030 (1.005-1.030) 11/23/18 00:45 Urine Protein NEGATIVE mg/dL (NEGATIVE) 11/23/18 00:45 Urine Glucose (UA) NEGATIVE mg/dL (NEGATIVE) 11/23/18 00:45 Urine Ketones NEGATIVE mg/dL (NEGATIVE) 11/23/18 00:45 Urine Blood TRACE (NEGATIVE) 11/23/18 00:45 Urine Nitrate NEGATIVE (NEGATIVE) 11/23/18 00:45 Urine Bilirubin NEGATIVE (NEGATIVE) 11/23/18 00:45 Urine Urobilinogen 0.2 E.U./dL (0.2 - 1.0) 11/23/18 00:45 Ur Leukocyte Esterase MODERATE (NEGATIVE) H 11/23/18 00:45 Urine RBC 0-2 /hpf (0-5) 11/23/18 00:45 Urine WBC 50-100 /hpf (0-5) H 11/23/18 00:45 Ur Epithelial Cells MODERATE /lpf (FEW) 11/23/18 00:45 Urine Bacteria FEW /hpf (NONE SEEN) 11/23/18 00:45 Salicylates < 25.0 mg/L (30.0-100.0) L 11/23/18 10:38 Urine Opiates Screen NEGATIVE (NEGATIVE) 11/23/18 00:45 Urine Methadone Screen NEGATIVE (NEGATIVE) 11/23/18 00:45 Acetaminophen < 10.0 ug/mL (10.0-30.0) L 11/23/18 10:38 Ur Barbiturates Screen NEGATIVE (NEGATIVE) 11/23/18 00:45 Ur Tricyclics Screen NEGATIVE (NEGATIVE) 11/23/18 00:45 Ur Phencyclidine Scrn NEGATIVE (NEGATIVE) 11/23/18 00:45 Amphetamines Screen NEGATIVE (NEGATIVE) 11/23/18 00:45 U Methamphetamines Scrn NEGATIVE (NEGATIVE) 11/23/18 00:45 U Benzodiazepines Scrn NEGATIVE (NEGATIVE) 11/23/18 00:45 U Cocaine Metab Screen NEGATIVE (NEGATIVE) 11/23/18 00:45 U Cannabinoids Screen NEGATIVE (NEGATIVE) 11/23/18 00:45 Ethyl Alcohol < 10 mg/dL (0-10) 11/23/18 10:38 RPR NONREACTIVE (NONREACTIVE) 11/23/18 10:38 - Physical Exam Vitals and I&O: Vital Signs Temp 98.2 F 11/26/18 21:05 Pulse 69 11/26/18 21:05 Resp 18 11/26/18 21:05 BP 134/73 11/26/18 21:05 Pulse Ox 93 11/26/18 21:05 Intake & Output 11/26/18 11/26/18 11/27/18 06:59 18:59 06:59 Intake Total 100 240 Balance 100 240 Intake: Oral 100 240 Other: # Voids 2 Stool Characteristics Soft Soft Active Medications: Current Medications Acetaminophen (Tylenol) 650 mg PO Q4HR PRN PRN Reason: Mild Pain / Temp above 100 Stop: 01/22/19 13:46 Acetaminophen (Tylenol) 325 mg PO Q4HR PRN PRN Reason: Pain (Moderate) Stop: 01/22/19 15:15 Acetaminophen (Tylenol Extra Strength) 1,000 mg PO Q4HR PRN PRN Reason: Pain (Moderate) Stop: 01/22/19 15:15 Last Admin: 11/24/18 08:49 Dose: 1,000 mg Al Hydrox/Mg Hydrox/Simethicone (Maalox) 30 ml PO Q4HR PRN PRN Reason: GI DISTRESS Stop: 01/22/19 13:46 Atorvastatin Calcium (Lipitor) 20 mg PO HS MATT Stop: 01/22/19 20:59 Last Admin: 11/26/18 21:11 Dose: Not Given Bisacodyl (Dulcolax 10 Mg Supp) 10 mg RC DAILY PRN PRN Reason: IF MOM INEFFECTIVE Stop: 01/22/19 15:15 Donepezil HCl (Aricept) 5 mg PO DAILY [facility] Stop: 01/26/19 08:59 Latanoprost (Xalatan 0.005% Ophth Soln) 1 drop EACH EYE QPM MATT Stop: 01/22/19 16:59 Last Admin: 11/26/18 16:28 Dose: Not Given Lisinopril (Zestril) 10 mg PO DAILY MATT Stop: 01/23/19 08:59 Last Admin: 11/26/18 09:50 Dose: 10 mg Lorazepam (Ativan) 0.5 mg PO Q4HR PRN; Protocol PRN Reason: Agitation Stop: 12/23/18 13:46 Last Admin: 11/24/18 21:16 Dose: 0.5 mg Magnesium Hydroxide (Milk Of Magnesia) 30 ml PO HS PRN PRN Reason: Constipation Magnesium Hydroxide (Milk Of Magnesia) 30 ml PO DAILY PRN PRN Reason: Constipation Stop: 01/22/19 15:15 Memantine (Namenda) 5 mg PO DAILY MATT Stop: 01/24/19 08:59 Last Admin: 11/26/18 09:51 Dose: 5 mg Multivitamins/Vitamin C (Theragran) 1 tab PO DAILY MATT Stop: 01/23/19 08:59 Last Admin: 11/26/18 09:52 Dose: 1 tab Sodium Phosphate (Fleet Enema) 135 ml RC DAILY PRN PRN Reason: IF DULCOLAX INEFFECTIVE Stop: 01/22/19 15:15 Trimethoprim/Sulfamethoxazole (Bactrim Ds) 1 tab PO BID MATT Stop: 01/22/19 16:59 Last Admin: 11/26/18 16:29 Dose: Not Given Zolpidem Tartrate (Ambien) 5 mg PO HS PRN PRN Reason: Insomnia Stop: 01/22/19 13:46 Last Admin: 11/24/18 21:16 Dose: 5 mg General: Alert, No acute distress HEENT: Atraumatic, PERRLA Neck: Supple Cardiovascular: Regular rate, Normal S1, Normal S2 Lungs: Clear to auscultation Abdomen: Bowel sounds Extremities: no Clubbing, no Cyanosis, no Edema Assessment/Plan - Assessment Assessment: psychosis HTN UTI +ESBL Hyperlipidemia Depression/Anxiety - Plan [facility]. Nutritional Asmnt/Malnutr-PDOC - Dietary Evaluation Malnutrition Findings (Please click <Entered> for more info): Nutritional Asmnt/Malnutrition Start: 11/26/18 17: 13 Text: Status: Complete Freq: Protocol: Document 11/26/18 17:13 LCHENG (Rec: 11/26/18 17:22 [email or web address] [id number]) Nutritional Asmnt/Malnutrition Patient General Information Nutritional Screening Moderate Risk Diagnosis psychosis Pertinent Medical Hx/Surgical Hx HTN, hyperlipidemia, anxiety, depression, psychosis Subjective Information Pt seen in her room, confused. Per EMR, PO intake 75% Current Diet Order/ Nutrition Support regular Pertinent Medications lipitor, theragran Pertinent Labs 2/5 reviewed Nutritional Hx/Data Height 1.68 m Height (Calculated Centimeters) 167.6 Current Weight (lbs) 68.039 kg Weight (Calculated Kilograms) 68.0 Weight (Calculated Grams) 97367.9 [place] Body Weight 130 Body Mass Index (BMI) 24.2 Weight Status Approriate GI Symptoms GI Symptoms None Last BM not indicated Difficult in: None Skin Integrity/Comment: intact Current %PO Good (75-100%) Estimated Nutritional Goals BEE in Kcals: Using Current wt Calories/Kcals/Kg 25-30 Kcals Calculated [id number] Protein: Using Current wt Protein g/k Protein Calculated 68 Fluid: ml 1700-2040ml (1ml/kcal) Nutritional Problem No current Nutrition Prob Problem N/A Malnutrition Alert Is there a minimum of two criteria No selected? Query Text:Check all the applicable criteria. A minimum of two criteria are recommended for diagnosis of either severe or non-severe malnutrition. Malnutrition Related to Morbid Obesity Malnutrition related to morbid obesity No Intervention/Recommendation Comments 1. Continue with current diet as ordered. 2. Monitor PO intake, wt, labs and skin integrity 3. F/U as low risk in 7 days Expected Outcomes/Goals Expected Outcomes/Goals 1. PO intake to meet at least 75% of nutritional needs. 2. Wt stability, skin to remain intact, labs to approach WNL.
[2018-11-27] MEDS: Multivitamin Tab PO SCH (09:22)
[2018-11-27] MEDS: Sulfamethoxazole/TMP 800/160mg Tab PO SCH ×2 (09:22→17:31)
--- NOTE | 2018-11-27 12:40 | Progress Notes ---
DATE: 11/26/2018 SUBJECTIVE: An 78-year-old female, had been confused, combative, aggressive. On [id number], the patient is AO to name only, rambling nonsensical, poor historian. It is really hard to follow her thought process as she is jumping from one topic to the next. Slept for about 5-1/2 hours. Staff noting she remains suspicious, sometimes gets agitated, sometimes hearing voices, hearing dogs barking, mostly withdrawn, keeps herself. The patient is still somewhat paranoid, believing that the medication is poison. ASSESSMENT: The patient remains paranoid, very confused, disoriented, not safe for a lower level of care. Concerns about her behaviors. PLAN: We will continue to monitor. Continue dosing of Namenda await day. The patient may benefit from dosing of Aricept. Vitals were reviewed and she will likely tolerate dosing of Aricept. JOB# [id number]
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
[2018-11-27] MEDS: Atorvastatin Calcium 10 MG TAB PO SCH (20:55)
--- NOTE | 2018-11-28 05:57 | General Progress Note ---
Subjective - Review of Systems Service Date: 11/28/18 Subjective: Awake, Aler, afebrile. VS T 97.9 P 61 BP 111/57 R 20 Objective - Results Result Diagrams: 11/23/18 10:38 11/23/18 10:38 Recent Labs: Laboratory Last Values WBC 7.7 Th/cmm (4.8-10.8) 11/23/18 10:38 RBC 5.55 Mil/cmm (3.80-5.20) H 11/23/18 10:38 Hgb 14.5 gm/dL (12-16) 11/23/18 10:38 Hct 45.1 % (41.0-60) 11/23/18 10:38 MCV 81.3 fl (81-100) 11/23/18 10:38 MCH 26.2 pg (27.0-31.0) L 11/23/18 10:38 MCHC Differential 32.2 pg (28.0-36.0) 11/23/18 10:38 RDW 13.5 % (11.5-20.0) 11/23/18 10:38 Plt Count 275 Th/cmm (150-400) 11/23/18 10:38 MPV 9.1 fl 11/23/18 10:38 Neutrophils % 60.7 % (40.0-80.0) 11/23/18 10:38 Lymphocytes % 30.2 % (20.0-50.0) 11/23/18 10:38 Monocytes % 7.9 % (2.0-10.0) 11/23/18 10:38 Eosinophils % 0.9 % (0.0-5.0) 11/23/18 10:38 Basophils % 0.3 % (0.0-2.0) 11/23/18 10:38 Sodium 142 mEq/L (136-145) 11/23/18 10:38 Potassium 3.5 mEq/L (3.5-5.1) 11/23/18 10:38 Chloride 103 mEq/L (98-107) 11/23/18 10:38 Carbon Dioxide 29.3 mEq/L (21.0-31.0) 11/23/18 10:38 Anion Gap 13.2 (7.0-16.0) 11/23/18 10:38 BUN 11 mg/dL (7-25) 11/23/18 10:38 Creatinine 0.8 mg/dL (0.6-1.2) 11/23/18 10:38 Est GFR ( Amer) TNP 11/23/18 10:38 Est GFR (Non-Af Amer) TNP 11/23/18 10:38 BUN/Creatinine Ratio 13.8 11/23/18 10:38 Glucose 105 mg/dL (70-105) 11/23/18 10:38 Calcium 10.2 mg/dL (8.6-10.3) 11/23/18 10:38 Total Bilirubin 0.8 mg/dL (0.3-1.0) 11/23/18 10:38 AST 20 U/L (13-39) 11/23/18 10:38 ALT 14 U/L (7-52) 11/23/18 10:38 Alkaline Phosphatase 79 U/L (34-104) 11/23/18 10:38 Troponin I 0.01 ng/mL (0.01-0.05) 11/23/18 10:38 Total Protein 8.1 gm/dL (6.0-8.3) 11/23/18 10:38 Albumin 4.6 gm/dL (3.7-5.3) 11/23/18 10:38 Globulin 3.5 gm/dL 11/23/18 10:38 Albumin/Globulin Ratio 1.3 (1.0-1.8) 11/23/18 10:38 Triglycerides 76 mg/dL (<150) 11/23/18 10:38 Cholesterol 199 mg/dL (<200) 11/23/18 10:38 LDL Cholesterol Direct 145 mg/dL (75-193) 11/23/18 10:38 HDL Cholesterol 49 mg/dL (23-92) 11/23/18 10:38 TSH 1.33 uIU/ml (0.34-5.60) 11/23/18 10:38 Urine Source CLEAN C 11/23/18 00:45 Urine Color YELLOW 11/23/18 00:45 Urine Clarity CLOUDY (CLEAR) H 11/23/18 00:45 Urine pH 5.5 (4.6 - 8.0) 11/23/18 00:45 Ur Specific [place] >= 1.030 (1.005-1.030) 11/23/18 00:45 Urine Protein NEGATIVE mg/dL (NEGATIVE) 11/23/18 00:45 Urine Glucose (UA) NEGATIVE mg/dL (NEGATIVE) 11/23/18 00:45 Urine Ketones NEGATIVE mg/dL (NEGATIVE) 11/23/18 00:45 Urine Blood TRACE (NEGATIVE) 11/23/18 00:45 Urine Nitrate NEGATIVE (NEGATIVE) 11/23/18 00:45 Urine Bilirubin NEGATIVE (NEGATIVE) 11/23/18 00:45 Urine Urobilinogen 0.2 E.U./dL (0.2 - 1.0) 11/23/18 00:45 Ur Leukocyte Esterase MODERATE (NEGATIVE) H 11/23/18 00:45 Urine RBC 0-2 /hpf (0-5) 11/23/18 00:45 Urine WBC 50-100 /hpf (0-5) H 11/23/18 00:45 Ur Epithelial Cells MODERATE /lpf (FEW) 11/23/18 00:45 Urine Bacteria FEW /hpf (NONE SEEN) 11/23/18 00:45 Salicylates < 25.0 mg/L (30.0-100.0) L 11/23/18 10:38 Urine Opiates Screen NEGATIVE (NEGATIVE) 11/23/18 00:45 Urine Methadone Screen NEGATIVE (NEGATIVE) 11/23/18 00:45 Acetaminophen < 10.0 ug/mL (10.0-30.0) L 11/23/18 10:38 Ur Barbiturates Screen NEGATIVE (NEGATIVE) 11/23/18 00:45 Ur Tricyclics Screen NEGATIVE (NEGATIVE) 11/23/18 00:45 Ur Phencyclidine Scrn NEGATIVE (NEGATIVE) 11/23/18 00:45 Amphetamines Screen NEGATIVE (NEGATIVE) 11/23/18 00:45 U Methamphetamines Scrn NEGATIVE (NEGATIVE) 11/23/18 00:45 U Benzodiazepines Scrn NEGATIVE (NEGATIVE) 11/23/18 00:45 U Cocaine Metab Screen NEGATIVE (NEGATIVE) 11/23/18 00:45 U Cannabinoids Screen NEGATIVE (NEGATIVE) 11/23/18 00:45 Ethyl Alcohol < 10 mg/dL (0-10) 11/23/18 10:38 RPR NONREACTIVE (NONREACTIVE) 11/23/18 10:38 - Physical Exam Vitals and I&O: Vital Signs Temp 97.9 F 11/27/18 20:26 Pulse 61 11/27/18 20:26 Resp 20 11/27/18 20:26 BP 111/57 11/27/18 20:26 Pulse Ox 98 11/27/18 20:26 Intake & Output 11/27/18 11/27/18 11/28/18 06:59 18:59 06:59 Intake Total 240 1200 240 Balance 240 1200 240 Intake: Oral 240 1200 240 Other: # Voids 2 3 1 # Bowel Movements 0 Stool Characteristics Soft Soft Soft Active Medications: Current Medications Acetaminophen (Tylenol) 650 mg PO Q4HR PRN PRN Reason: Mild Pain / Temp above 100 Stop: 01/22/19 13:46 Acetaminophen (Tylenol) 325 mg PO Q4HR PRN PRN Reason: Pain (Moderate) Stop: 01/22/19 15:15 Acetaminophen (Tylenol Extra Strength) 1,000 mg PO Q4HR PRN PRN Reason: Pain (Moderate) Stop: 01/22/19 15:15 Last Admin: 11/24/18 08:49 Dose: 1,000 mg Al Hydrox/Mg Hydrox/Simethicone (Maalox) 30 ml PO Q4HR PRN PRN Reason: GI DISTRESS Stop: 01/22/19 13:46 Atorvastatin Calcium (Lipitor) 20 mg PO HS MATT Stop: 01/22/19 20:59 Last Admin: 11/27/18 20:55 Dose: 20 mg Bisacodyl (Dulcolax 10 Mg Supp) 10 mg RC DAILY PRN PRN Reason: IF MOM INEFFECTIVE Stop: 01/22/19 15:15 Donepezil HCl (Aricept) 5 mg PO DAILY MATT Stop: 01/26/19 08:59 Last Admin: 11/27/18 09:21 Dose: 5 mg Latanoprost (Xalatan 0.005% Ophth Soln) 1 drop EACH EYE QPM MATT Stop: 01/22/19 16:59 Last Admin: 11/27/18 17:31 Dose: Not Given Lisinopril (Zestril) 10 mg PO DAILY MATT Stop: 01/23/19 08:59 Last Admin: 11/27/18 09:21 Dose: 10 mg Lorazepam (Ativan) 0.5 mg PO Q4HR PRN; Protocol PRN Reason: Agitation Stop: 12/23/18 13:46 Last Admin: 11/24/18 21:16 Dose: 0.5 mg Magnesium Hydroxide (Milk Of Magnesia) 30 ml PO HS PRN PRN Reason: Constipation Magnesium Hydroxide (Milk Of Magnesia) 30 ml PO DAILY PRN PRN Reason: Constipation Stop: 01/22/19 15:15 Memantine (Namenda) 5 mg PO DAILY MATT Stop: 01/24/19 08:59 Last Admin: 11/27/18 09:21 Dose: 5 mg Multivitamins/Vitamin C (Theragran) 1 tab PO DAILY MATT Stop: 01/23/19 08:59 Last Admin: 11/27/18 09:22 Dose: 1 tab Sodium Phosphate (Fleet Enema) 135 ml RC DAILY PRN PRN Reason: IF DULCOLAX INEFFECTIVE Stop: 01/22/19 15:15 Trimethoprim/Sulfamethoxazole (Bactrim Ds) 1 tab PO BID MATT Stop: 01/22/19 16:59 Last Admin: 11/27/18 17:31 Dose: Not Given Zolpidem Tartrate (Ambien) 5 mg PO HS PRN PRN Reason: Insomnia Stop: 01/22/19 13:46 Last Admin: 11/24/18 21:16 Dose: 5 mg General: Alert, No acute distress HEENT: Atraumatic, PERRLA Neck: Supple Cardiovascular: Regular rate, Normal S1, Normal S2 Lungs: Clear to auscultation Abdomen: Bowel sounds Extremities: no Clubbing, no Cyanosis, no Edema Assessment/Plan - Assessment Assessment: psychosis HTN UTI +ESBL Hyperlipidemia Depression/Anxiety - Plan Plan: admit to [facility] will continue home meds. Nutritional Asmnt/Malnutr-PDOC - Dietary Evaluation Malnutrition Findings (Please click <Entered> for more info): Nutritional Asmnt/Malnutrition Start: 11/26/18 17: 13 Text: Status: Complete Freq: Protocol: Document 11/26/18 17:13 LCMARIANNEG (Rec: 11/26/18 17:22 LCMARIANNEG [id number]) Nutritional Asmnt/Malnutrition Patient General Information Nutritional Screening Moderate Risk Diagnosis psychosis Pertinent Medical Hx/Surgical Hx HTN, hyperlipidemia, anxiety, depression, psychosis Subjective Information Pt seen in her room, confused. Per EMR, PO intake 75% Current Diet Order/ Nutrition Support regular Pertinent Medications lipitor, theragran Pertinent Labs 2/5 reviewed Nutritional Hx/Data Height 1.68 m Height (Calculated Centimeters) 167.6 Current Weight (lbs) 68.039 kg Weight (Calculated Kilograms) 68.0 Weight (Calculated Grams) 32380.9 [place] Body Weight 130 Body Mass Index (BMI) 24.2 Weight Status Approriate GI Symptoms GI Symptoms None Last BM not indicated Difficult in: None Skin Integrity/Comment: intact Current %PO Good (75-100%) Estimated Nutritional Goals BEE in Kcals: Using Current wt Calories/Kcals/Kg 25-30 Kcals Calculated 6068-6431 Protein: Using Current wt Protein g/k Protein Calculated 68 Fluid: ml 1700-2040ml (1ml/kcal) Nutritional Problem No current Nutrition Prob Problem N/A Malnutrition Alert Is there a minimum of two criteria No selected? Query Text:Check all the applicable criteria. A minimum of two criteria are recommended for diagnosis of either severe or non-severe malnutrition. Malnutrition Related to Morbid Obesity Malnutrition related to morbid obesity No Intervention/Recommendation Comments 1. Continue with current diet as ordered. 2. Monitor PO intake, wt, labs and skin integrity 3. F/U as low risk in 7 days Expected Outcomes/Goals Expected Outcomes/Goals 1. PO intake to meet at least 75% of nutritional needs. 2. Wt stability, skin to remain intact, labs to approach WNL.
[2018-11-28] MEDS: Multivitamin Tab PO SCH (08:40)
[2018-11-28] MEDS: Sulfamethoxazole/TMP 800/160mg Tab PO SCH ×2 (12:23→17:30)
[2018-11-28] MEDS: Atorvastatin Calcium 10 MG TAB PO SCH (21:02)
--- NOTE | 2018-11-28 23:13 | Progress Notes ---
DATE: 11/28/2018 Case was discussed with staff of the patient, reviewed records. The patient continues to be confused, has very poor insight about her behavior prior to coming here with her being aggressive and violent. The family was here, want to talk ____ admitted her, why they admit her without the consent. The patient continues to be unpredictable, impulsive, needing redirection. She is sleeping well, eating well. The family would like to know when she is leaving and I directed them to call Dr. Anderson tomorrow. No side effects with the medication, no sedation, no nausea and we will continue outpatient group therapy, milieu therapy, adjust medication as needed. JOB# [id number]
--- NOTE | 2018-11-29 08:19 | General Progress Note ---
Subjective - Review of Systems Service Date: 11/29/18 Subjective: Awake, Aler, afebrile. VS T 97.8 P 68 BP 132/72 R 18 Objective - Results Result Diagrams: 11/23/18 10:38 11/23/18 10:38 Recent Labs: Laboratory Last Values WBC 7.7 Th/cmm (4.8-10.8) 11/23/18 10:38 RBC 5.55 Mil/cmm (3.80-5.20) H 11/23/18 10:38 Hgb 14.5 gm/dL (12-16) 11/23/18 10:38 Hct 45.1 % (41.0-60) 11/23/18 10:38 MCV 81.3 fl (81-100) 11/23/18 10:38 MCH 26.2 pg (27.0-31.0) L 11/23/18 10:38 MCHC Differential 32.2 pg (28.0-36.0) 11/23/18 10:38 RDW 13.5 % (11.5-20.0) 11/23/18 10:38 Plt Count 275 Th/cmm (150-400) 11/23/18 10:38 MPV 9.1 fl 11/23/18 10:38 Neutrophils % 60.7 % (40.0-80.0) 11/23/18 10:38 Lymphocytes % 30.2 % (20.0-50.0) 11/23/18 10:38 Monocytes % 7.9 % (2.0-10.0) 11/23/18 10:38 Eosinophils % 0.9 % (0.0-5.0) 11/23/18 10:38 Basophils % 0.3 % (0.0-2.0) 11/23/18 10:38 Sodium 142 mEq/L (136-145) 11/23/18 10:38 Potassium 3.5 mEq/L (3.5-5.1) 11/23/18 10:38 Chloride 103 mEq/L (98-107) 11/23/18 10:38 Carbon Dioxide 29.3 mEq/L (21.0-31.0) 11/23/18 10:38 Anion Gap 13.2 (7.0-16.0) 11/23/18 10:38 BUN 11 mg/dL (7-25) 11/23/18 10:38 Creatinine 0.8 mg/dL (0.6-1.2) 11/23/18 10:38 Est GFR ( Amer) TNP 11/23/18 10:38 Est GFR (Non-Af Amer) TNP 11/23/18 10:38 BUN/Creatinine Ratio 13.8 11/23/18 10:38 Glucose 105 mg/dL (70-105) 11/23/18 10:38 Calcium 10.2 mg/dL (8.6-10.3) 11/23/18 10:38 Total Bilirubin 0.8 mg/dL (0.3-1.0) 11/23/18 10:38 AST 20 U/L (13-39) 11/23/18 10:38 ALT 14 U/L (7-52) 11/23/18 10:38 Alkaline Phosphatase 79 U/L (34-104) 11/23/18 10:38 Troponin I 0.01 ng/mL (0.01-0.05) 11/23/18 10:38 Total Protein 8.1 gm/dL (6.0-8.3) 11/23/18 10:38 Albumin 4.6 gm/dL (3.7-5.3) 11/23/18 10:38 Globulin 3.5 gm/dL 11/23/18 10:38 Albumin/Globulin Ratio 1.3 (1.0-1.8) 11/23/18 10:38 Triglycerides 76 mg/dL (<150) 11/23/18 10:38 Cholesterol 199 mg/dL (<200) 11/23/18 10:38 LDL Cholesterol Direct 145 mg/dL (75-193) 11/23/18 10:38 HDL Cholesterol 49 mg/dL (23-92) 11/23/18 10:38 TSH 1.33 uIU/ml (0.34-5.60) 11/23/18 10:38 Urine Source CLEAN C 11/23/18 00:45 Urine Color YELLOW 11/23/18 00:45 Urine Clarity CLOUDY (CLEAR) H 11/23/18 00:45 Urine pH 5.5 (4.6 - 8.0) 11/23/18 00:45 Ur Specific [employer] >= 1.030 (1.005-1.030) 11/23/18 00:45 Urine Protein NEGATIVE mg/dL (NEGATIVE) 11/23/18 00:45 Urine Glucose (UA) NEGATIVE mg/dL (NEGATIVE) 11/23/18 00:45 Urine Ketones NEGATIVE mg/dL (NEGATIVE) 11/23/18 00:45 Urine Blood TRACE (NEGATIVE) 11/23/18 00:45 Urine Nitrate NEGATIVE (NEGATIVE) 11/23/18 00:45 Urine Bilirubin NEGATIVE (NEGATIVE) 11/23/18 00:45 Urine Urobilinogen 0.2 E.U./dL (0.2 - 1.0) 11/23/18 00:45 Ur Leukocyte Esterase MODERATE (NEGATIVE) H 11/23/18 00:45 Urine RBC 0-2 /hpf (0-5) 11/23/18 00:45 Urine WBC 50-100 /hpf (0-5) H 11/23/18 00:45 Ur Epithelial Cells MODERATE /lpf (FEW) 11/23/18 00:45 Urine Bacteria FEW /hpf (NONE SEEN) 11/23/18 00:45 Salicylates < 25.0 mg/L (30.0-100.0) L 11/23/18 10:38 Urine Opiates Screen NEGATIVE (NEGATIVE) 11/23/18 00:45 Urine Methadone Screen NEGATIVE (NEGATIVE) 11/23/18 00:45 Acetaminophen < 10.0 ug/mL (10.0-30.0) L 11/23/18 10:38 Ur Barbiturates Screen NEGATIVE (NEGATIVE) 11/23/18 00:45 Ur Tricyclics Screen NEGATIVE (NEGATIVE) 11/23/18 00:45 Ur Phencyclidine Scrn NEGATIVE (NEGATIVE) 11/23/18 00:45 Amphetamines Screen NEGATIVE (NEGATIVE) 11/23/18 00:45 U Methamphetamines Scrn NEGATIVE (NEGATIVE) 11/23/18 00:45 U Benzodiazepines Scrn NEGATIVE (NEGATIVE) 11/23/18 00:45 U Cocaine Metab Screen NEGATIVE (NEGATIVE) 11/23/18 00:45 U Cannabinoids Screen NEGATIVE (NEGATIVE) 11/23/18 00:45 Ethyl Alcohol < 10 mg/dL (0-10) 11/23/18 10:38 RPR NONREACTIVE (NONREACTIVE) 11/23/18 10:38 - Physical Exam Vitals and I&O: Vital Signs Temp 97.8 F 11/29/18 04:57 Pulse 68 11/29/18 04:57 Resp 18 11/29/18 04:57 BP 132/72 11/29/18 04:57 Pulse Ox 98 11/29/18 04:57 Intake & Output 11/28/18 11/29/18 11/29/18 18:59 06:59 18:59 Intake Total 480 Balance 480 Intake: Oral 480 Other: # Voids 2 2 # Bowel Movements 0 Stool Characteristics Soft Soft Active Medications: Current Medications Acetaminophen (Tylenol) 650 mg PO Q4HR PRN PRN Reason: Mild Pain / Temp above 100 Stop: 01/22/19 13:46 Last Admin: 11/28/18 14:44 Dose: 650 mg Acetaminophen (Tylenol) 325 mg PO Q4HR PRN PRN Reason: Pain (Moderate) Stop: 01/22/19 15:15 Acetaminophen (Tylenol Extra Strength) 1,000 mg PO Q4HR PRN PRN Reason: Pain (Moderate) Stop: 01/22/19 15:15 Last Admin: 11/24/18 08:49 Dose: 1,000 mg Al Hydrox/Mg Hydrox/Simethicone (Maalox) 30 ml PO Q4HR PRN PRN Reason: GI DISTRESS Stop: 01/22/19 13:46 Atorvastatin Calcium (Lipitor) 20 mg PO HS [facility] Stop: 01/22/19 20:59 Last Admin: 11/28/18 21:02 Dose: 20 mg Bisacodyl (Dulcolax 10 Mg Supp) 10 mg RC DAILY PRN PRN Reason: IF MOM INEFFECTIVE Stop: 01/22/19 15:15 Donepezil HCl (Aricept) 5 mg PO DAILY [facility] Stop: 01/26/19 08:59 Last Admin: 11/28/18 08:40 Dose: 5 mg Latanoprost (Xalatan 0.005% Ophth Soln) 1 drop EACH EYE QPM [facility] Stop: 01/22/19 16:59 Last Admin: 11/28/18 17:30 Dose: 1 drop Lisinopril (Zestril) 10 mg PO DAILY MATT Stop: 01/23/19 08:59 Last Admin: 11/28/18 08:40 Dose: 10 mg Lorazepam (Ativan) 0.5 mg PO Q4HR PRN; Protocol PRN Reason: Agitation Stop: 12/23/18 13:46 Last Admin: 11/24/18 21:16 Dose: 0.5 mg Magnesium Hydroxide (Milk Of Magnesia) 30 ml PO HS PRN PRN Reason: Constipation Magnesium Hydroxide (Milk Of Magnesia) 30 ml PO DAILY PRN PRN Reason: Constipation Stop: 01/22/19 15:15 Memantine (Namenda) 5 mg PO DAILY MATT Stop: 01/24/19 08:59 Last Admin: 11/28/18 08:39 Dose: 5 mg Multivitamins/Vitamin C (Theragran) 1 tab PO DAILY MATT Stop: 01/23/19 08:59 Last Admin: 11/28/18 08:40 Dose: 1 tab Sodium Phosphate (Fleet Enema) 135 ml RC DAILY PRN PRN Reason: IF DULCOLAX INEFFECTIVE Stop: 01/22/19 15:15 Trimethoprim/Sulfamethoxazole (Bactrim Ds) 1 tab PO BID MATT Stop: 01/22/19 16:59 Last Admin: 11/28/18 17:30 Dose: 1 tab Zolpidem Tartrate (Ambien) 5 mg PO HS PRN PRN Reason: Insomnia Stop: 01/22/19 13:46 Last Admin: 11/24/18 21:16 Dose: 5 mg General: Alert, No acute distress HEENT: Atraumatic, PERRLA Neck: Supple Cardiovascular: Regular rate, Normal S1, Normal S2 Lungs: Clear to auscultation Abdomen: Bowel sounds Extremities: no Clubbing, no Cyanosis, no Edema Assessment/Plan - Assessment Assessment: psychosis HTN UTI +ESBL Hyperlipidemia Depression/Anxiety - Plan Plan: admit to [facility] will continue home meds. Nutritional Asmnt/Malnutr-PDOC - Dietary Evaluation Malnutrition Findings (Please click <Entered> for more info): Nutritional Asmnt/Malnutrition Start: 11/26/18 17: 13 Text: Status: Complete Freq: Protocol: Document 11/26/18 17:13 TAYO (Rec: 11/26/18 17:22 TAYO [id number]) Nutritional Asmnt/Malnutrition Patient General Information Nutritional Screening Moderate Risk Diagnosis psychosis Pertinent Medical Hx/Surgical Hx HTN, hyperlipidemia, anxiety, depression, psychosis Subjective Information Pt seen in her room, confused. Per EMR, PO intake 75% Current Diet Order/ Nutrition Support regular Pertinent Medications lipitor, theragran Pertinent Labs 2/5 reviewed Nutritional Hx/Data Height 1.68 m Height (Calculated Centimeters) 167.6 Current Weight (lbs) 68.039 kg Weight (Calculated Kilograms) 68.0 Weight (Calculated Grams) 29990.9 [place] Body Weight 130 Body Mass Index (BMI) 24.2 Weight Status Approriate GI Symptoms GI Symptoms None Last BM not indicated Difficult in: None Skin Integrity/Comment: intact Current %PO Good (75-100%) Estimated Nutritional Goals BEE in Kcals: Using Current wt Calories/Kcals/Kg 25-30 Kcals Calculated 1040-3580 Protein: Using Current wt Protein g/k Protein Calculated 68 Fluid: ml 1700-2040ml (1ml/kcal) Nutritional Problem No current Nutrition Prob Problem N/A Malnutrition Alert Is there a minimum of two criteria No selected? Query Text:Check all the applicable criteria. A minimum of two criteria are recommended for diagnosis of either severe or non-severe malnutrition. Malnutrition Related to Morbid Obesity Malnutrition related to morbid obesity No Intervention/Recommendation Comments 1. Continue with current diet as ordered. 2. Monitor PO intake, wt, labs and skin integrity 3. F/U as low risk in 7 days Expected Outcomes/Goals Expected Outcomes/Goals 1. PO intake to meet at least 75% of nutritional needs. 2. Wt stability, skin to remain intact, labs to approach WNL.
[2018-11-29] MEDS: Sulfamethoxazole/TMP 800/160mg Tab PO SCH ×2 (09:24→16:52)
[2018-11-29] MEDS: Multivitamin Tab PO SCH (09:24)
[2018-11-29] MEDS: Atorvastatin Calcium 10 MG TAB PO SCH (20:52)
--- NOTE | 2018-11-30 08:14 | General Progress Note ---
Subjective - Review of Systems Service Date: 11/30/18 Subjective: Awake, Aler, afebrile. VS T 98.0 P 69 BP 107/76 R 18 Objective - Results Result Diagrams: 11/23/18 10:38 11/23/18 10:38 Recent Labs: Laboratory Last Values WBC 7.7 Th/cmm (4.8-10.8) 11/23/18 10:38 RBC 5.55 Mil/cmm (3.80-5.20) H 11/23/18 10:38 Hgb 14.5 gm/dL (12-16) 11/23/18 10:38 Hct 45.1 % (41.0-60) 11/23/18 10:38 MCV 81.3 fl (81-100) 11/23/18 10:38 MCH 26.2 pg (27.0-31.0) L 11/23/18 10:38 MCHC Differential 32.2 pg (28.0-36.0) 11/23/18 10:38 RDW 13.5 % (11.5-20.0) 11/23/18 10:38 Plt Count 275 Th/cmm (150-400) 11/23/18 10:38 MPV 9.1 fl 11/23/18 10:38 Neutrophils % 60.7 % (40.0-80.0) 11/23/18 10:38 Lymphocytes % 30.2 % (20.0-50.0) 11/23/18 10:38 Monocytes % 7.9 % (2.0-10.0) 11/23/18 10:38 Eosinophils % 0.9 % (0.0-5.0) 11/23/18 10:38 Basophils % 0.3 % (0.0-2.0) 11/23/18 10:38 Sodium 142 mEq/L (136-145) 11/23/18 10:38 Potassium 3.5 mEq/L (3.5-5.1) 11/23/18 10:38 Chloride 103 mEq/L (98-107) 11/23/18 10:38 Carbon Dioxide 29.3 mEq/L (21.0-31.0) 11/23/18 10:38 Anion Gap 13.2 (7.0-16.0) 11/23/18 10:38 BUN 11 mg/dL (7-25) 11/23/18 10:38 Creatinine 0.8 mg/dL (0.6-1.2) 11/23/18 10:38 Est GFR ( Amer) TNP 11/23/18 10:38 Est GFR (Non-Af Amer) TNP 11/23/18 10:38 BUN/Creatinine Ratio 13.8 11/23/18 10:38 Glucose 105 mg/dL (70-105) 11/23/18 10:38 Calcium 10.2 mg/dL (8.6-10.3) 11/23/18 10:38 Total Bilirubin 0.8 mg/dL (0.3-1.0) 11/23/18 10:38 AST 20 U/L (13-39) 11/23/18 10:38 ALT 14 U/L (7-52) 11/23/18 10:38 Alkaline Phosphatase 79 U/L (34-104) 11/23/18 10:38 Troponin I 0.01 ng/mL (0.01-0.05) 11/23/18 10:38 Total Protein 8.1 gm/dL (6.0-8.3) 11/23/18 10:38 Albumin 4.6 gm/dL (3.7-5.3) 11/23/18 10:38 Globulin 3.5 gm/dL 11/23/18 10:38 Albumin/Globulin Ratio 1.3 (1.0-1.8) 11/23/18 10:38 Triglycerides 76 mg/dL (<150) 11/23/18 10:38 Cholesterol 199 mg/dL (<200) 11/23/18 10:38 LDL Cholesterol Direct 145 mg/dL (75-193) 11/23/18 10:38 HDL Cholesterol 49 mg/dL (23-92) 11/23/18 10:38 TSH 1.33 uIU/ml (0.34-5.60) 11/23/18 10:38 Urine Source CLEAN C 11/23/18 00:45 Urine Color YELLOW 11/23/18 00:45 Urine Clarity CLOUDY (CLEAR) H 11/23/18 00:45 Urine pH 5.5 (4.6 - 8.0) 11/23/18 00:45 Ur Specific [place] >= 1.030 (1.005-1.030) 11/23/18 00:45 Urine Protein NEGATIVE mg/dL (NEGATIVE) 11/23/18 00:45 Urine Glucose (UA) NEGATIVE mg/dL (NEGATIVE) 11/23/18 00:45 Urine Ketones NEGATIVE mg/dL (NEGATIVE) 11/23/18 00:45 Urine Blood TRACE (NEGATIVE) 11/23/18 00:45 Urine Nitrate NEGATIVE (NEGATIVE) 11/23/18 00:45 Urine Bilirubin NEGATIVE (NEGATIVE) 11/23/18 00:45 Urine Urobilinogen 0.2 E.U./dL (0.2 - 1.0) 11/23/18 00:45 Ur Leukocyte Esterase MODERATE (NEGATIVE) H 11/23/18 00:45 Urine RBC 0-2 /hpf (0-5) 11/23/18 00:45 Urine WBC 50-100 /hpf (0-5) H 11/23/18 00:45 Ur Epithelial Cells MODERATE /lpf (FEW) 11/23/18 00:45 Urine Bacteria FEW /hpf (NONE SEEN) 11/23/18 00:45 Salicylates < 25.0 mg/L (30.0-100.0) L 11/23/18 10:38 Urine Opiates Screen NEGATIVE (NEGATIVE) 11/23/18 00:45 Urine Methadone Screen NEGATIVE (NEGATIVE) 11/23/18 00:45 Acetaminophen < 10.0 ug/mL (10.0-30.0) L 11/23/18 10:38 Ur Barbiturates Screen NEGATIVE (NEGATIVE) 11/23/18 00:45 Ur Tricyclics Screen NEGATIVE (NEGATIVE) 11/23/18 00:45 Ur Phencyclidine Scrn NEGATIVE (NEGATIVE) 11/23/18 00:45 Amphetamines Screen NEGATIVE (NEGATIVE) 11/23/18 00:45 U Methamphetamines Scrn NEGATIVE (NEGATIVE) 11/23/18 00:45 U Benzodiazepines Scrn NEGATIVE (NEGATIVE) 11/23/18 00:45 U Cocaine Metab Screen NEGATIVE (NEGATIVE) 11/23/18 00:45 U Cannabinoids Screen NEGATIVE (NEGATIVE) 11/23/18 00:45 Ethyl Alcohol < 10 mg/dL (0-10) 11/23/18 10:38 RPR NONREACTIVE (NONREACTIVE) 11/23/18 10:38 - Physical Exam Vitals and I&O: Vital Signs Temp 98.0 F 11/29/18 20:27 Pulse 69 11/29/18 20:27 Resp 18 11/29/18 20:27 BP 107/76 11/29/18 20:27 Pulse Ox 95 11/29/18 20:27 Intake & Output 11/29/18 11/30/18 11/30/18 18:59 06:59 18:59 Intake Total 180 Balance 180 Intake: Oral 180 Other: # Voids 1 # Bowel Movements 0 Stool Characteristics Soft Soft Active Medications: Current Medications Acetaminophen (Tylenol) 650 mg PO Q4HR PRN PRN Reason: Mild Pain / Temp above 100 Stop: 01/22/19 13:46 Last Admin: 11/28/18 14:44 Dose: 650 mg Acetaminophen (Tylenol) 325 mg PO Q4HR PRN PRN Reason: Pain (Moderate) Stop: 01/22/19 15:15 Acetaminophen (Tylenol Extra Strength) 1,000 mg PO Q4HR PRN PRN Reason: Pain (Moderate) Stop: 01/22/19 15:15 Last Admin: 11/24/18 08:49 Dose: 1,000 mg Al Hydrox/Mg Hydrox/Simethicone (Maalox) 30 ml PO Q4HR PRN PRN Reason: GI DISTRESS Stop: 01/22/19 13:46 Atorvastatin Calcium (Lipitor) 20 mg PO HS [facility] Stop: 01/22/19 20:59 Last Admin: 11/29/18 20:52 Dose: 20 mg Bisacodyl (Dulcolax 10 Mg Supp) 10 mg RC DAILY PRN PRN Reason: IF MOM INEFFECTIVE Stop: 01/22/19 15:15 Donepezil HCl (Aricept) 5 mg PO DAILY MATT Stop: 01/26/19 08:59 Last Admin: 11/29/18 09:24 Dose: 5 mg Latanoprost (Xalatan 0.005% Ophth Soln) 1 drop EACH EYE QPM [facility] Stop: 01/22/19 16:59 Last Admin: 11/29/18 16:52 Dose: 1 drop Lisinopril (Zestril) 10 mg PO DAILY MATT Stop: 01/23/19 08:59 Last Admin: 11/29/18 09:24 Dose: 10 mg Lorazepam (Ativan) 0.5 mg PO Q4HR PRN; Protocol PRN Reason: Agitation Stop: 12/23/18 13:46 Last Admin: 11/24/18 21:16 Dose: 0.5 mg Magnesium Hydroxide (Milk Of Magnesia) 30 ml PO HS PRN PRN Reason: Constipation Magnesium Hydroxide (Milk Of Magnesia) 30 ml PO DAILY PRN PRN Reason: Constipation Stop: 01/22/19 15:15 Memantine (Namenda) 5 mg PO DAILY MATT Stop: 01/24/19 08:59 Last Admin: 11/29/18 09:25 Dose: 5 mg Multivitamins/Vitamin C (Theragran) 1 tab PO DAILY MATT Stop: 01/23/19 08:59 Last Admin: 11/29/18 09:24 Dose: 1 tab Sodium Phosphate (Fleet Enema) 135 ml RC DAILY PRN PRN Reason: IF DULCOLAX INEFFECTIVE Stop: 01/22/19 15:15 Zolpidem Tartrate (Ambien) 5 mg PO HS PRN PRN Reason: Insomnia Stop: 01/22/19 13:46 Last Admin: 11/29/18 20:52 Dose: 5 mg General: Alert, No acute distress HEENT: Atraumatic, PERRLA Neck: Supple Cardiovascular: Regular rate, Normal S1, Normal S2 Lungs: Clear to auscultation Abdomen: Bowel sounds Extremities: no Clubbing, no Cyanosis, no Edema Assessment/Plan - Assessment Assessment: psychosis HTN UTI +ESBL Hyperlipidemia Depression/Anxiety - Plan Plan: admit to [facility] will continue home meds. Nutritional Asmnt/Malnutr-PDOC - Dietary Evaluation Malnutrition Findings (Please click <Entered> for more info): Nutritional Asmnt/Malnutrition Start: 11/26/18 17: 13 Text: Status: Complete Freq: Protocol: Document 11/26/18 17:13 LCHENG (Rec: 11/26/18 17:22 LCHENG [id number]) Nutritional Asmnt/Malnutrition Patient General Information Nutritional Screening Moderate Risk Diagnosis psychosis Pertinent Medical Hx/Surgical Hx HTN, hyperlipidemia, anxiety, depression, psychosis Subjective Information Pt seen in her room, confused. Per EMR, PO intake 75% Current Diet Order/ Nutrition Support regular Pertinent Medications lipitor, theragran Pertinent Labs 2/5 reviewed Nutritional Hx/Data Height 1.68 m Height (Calculated Centimeters) 167.6 Current Weight (lbs) 68.039 kg Weight (Calculated Kilograms) 68.0 Weight (Calculated Grams) 00962.9 [place] Body Weight 130 Body Mass Index (BMI) 24.2 Weight Status Approriate GI Symptoms GI Symptoms None Last BM not indicated Difficult in: None Skin Integrity/Comment: intact Current %PO Good (75-100%) Estimated Nutritional Goals BEE in Kcals: Using Current wt Calories/Kcals/Kg 25-30 Kcals Calculated 9239-4125 Protein: Using Current wt Protein g/k Protein Calculated 68 Fluid: ml 1700-2040ml (1ml/kcal) Nutritional Problem No current Nutrition Prob Problem N/A Malnutrition Alert Is there a minimum of two criteria No selected? Query Text:Check all the applicable criteria. A minimum of two criteria are recommended for diagnosis of either severe or non-severe malnutrition. Malnutrition Related to Morbid Obesity Malnutrition related to morbid obesity No Intervention/Recommendation Comments 1. Continue with current diet as ordered. 2. Monitor PO intake, wt, labs and skin integrity 3. F/U as low risk in 7 days Expected Outcomes/Goals Expected Outcomes/Goals 1. PO intake to meet at least 75% of nutritional needs. 2. Wt stability, skin to remain intact, labs to approach WNL.
[2018-11-30] MEDS: Multivitamin Tab PO SCH (08:26)
--- NOTE | 2018-11-30 14:43 | Progress Notes ---
DATE: 11/29/2018 SUBJECTIVE: The patient in the hospital, very confused, AO to name only, does not know where she is or what is going on, does not know the year, the month, or the day of the week, likely to baseline. We are trying to confirm placement. She cannot take care of her basic needs because of her dementia status, confusional status. ASSESSMENT: The patient is sleeping well, eating with some prompting, making nonsensical statements, extremely confused. PLAN: We will continue to monitor. We will contact family today. The patient's medications includes atorvastatin, Aricept, lisinopril, Ativan p.r.n., and Namenda. JOB# [id number]
[2018-11-30] MEDS: Atorvastatin Calcium 10 MG TAB PO SCH (21:21)
--- NOTE | 2018-12-01 08:43 | General Progress Note ---
Subjective - Review of Systems Service Date: 12/01/18 Subjective: Awake, Aler, afebrile. VS T 97.5 P 64 BP 120/66 R 20 Objective - Results Result Diagrams: 11/23/18 10:38 11/23/18 10:38 Recent Labs: Laboratory Last Values WBC 7.7 Th/cmm (4.8-10.8) 11/23/18 10:38 RBC 5.55 Mil/cmm (3.80-5.20) H 11/23/18 10:38 Hgb 14.5 gm/dL (12-16) 11/23/18 10:38 Hct 45.1 % (41.0-60) 11/23/18 10:38 MCV 81.3 fl (81-100) 11/23/18 10:38 MCH 26.2 pg (27.0-31.0) L 11/23/18 10:38 MCHC Differential 32.2 pg (28.0-36.0) 11/23/18 10:38 RDW 13.5 % (11.5-20.0) 11/23/18 10:38 Plt Count 275 Th/cmm (150-400) 11/23/18 10:38 MPV 9.1 fl 11/23/18 10:38 Neutrophils % 60.7 % (40.0-80.0) 11/23/18 10:38 Lymphocytes % 30.2 % (20.0-50.0) 11/23/18 10:38 Monocytes % 7.9 % (2.0-10.0) 11/23/18 10:38 Eosinophils % 0.9 % (0.0-5.0) 11/23/18 10:38 Basophils % 0.3 % (0.0-2.0) 11/23/18 10:38 Sodium 142 mEq/L (136-145) 11/23/18 10:38 Potassium 3.5 mEq/L (3.5-5.1) 11/23/18 10:38 Chloride 103 mEq/L (98-107) 11/23/18 10:38 Carbon Dioxide 29.3 mEq/L (21.0-31.0) 11/23/18 10:38 Anion Gap 13.2 (7.0-16.0) 11/23/18 10:38 BUN 11 mg/dL (7-25) 11/23/18 10:38 Creatinine 0.8 mg/dL (0.6-1.2) 11/23/18 10:38 Est GFR ( Amer) TNP 11/23/18 10:38 Est GFR (Non-Af Amer) TNP 11/23/18 10:38 BUN/Creatinine Ratio 13.8 11/23/18 10:38 Glucose 105 mg/dL (70-105) 11/23/18 10:38 Calcium 10.2 mg/dL (8.6-10.3) 11/23/18 10:38 Total Bilirubin 0.8 mg/dL (0.3-1.0) 11/23/18 10:38 AST 20 U/L (13-39) 11/23/18 10:38 ALT 14 U/L (7-52) 11/23/18 10:38 Alkaline Phosphatase 79 U/L (34-104) 11/23/18 10:38 Troponin I 0.01 ng/mL (0.01-0.05) 11/23/18 10:38 Total Protein 8.1 gm/dL (6.0-8.3) 11/23/18 10:38 Albumin 4.6 gm/dL (3.7-5.3) 11/23/18 10:38 Globulin 3.5 gm/dL 11/23/18 10:38 Albumin/Globulin Ratio 1.3 (1.0-1.8) 11/23/18 10:38 Triglycerides 76 mg/dL (<150) 11/23/18 10:38 Cholesterol 199 mg/dL (<200) 11/23/18 10:38 LDL Cholesterol Direct 145 mg/dL (75-193) 11/23/18 10:38 HDL Cholesterol 49 mg/dL (23-92) 11/23/18 10:38 TSH 1.33 uIU/ml (0.34-5.60) 11/23/18 10:38 Urine Source CLEAN C 11/23/18 00:45 Urine Color YELLOW 11/23/18 00:45 Urine Clarity CLOUDY (CLEAR) H 11/23/18 00:45 Urine pH 5.5 (4.6 - 8.0) 11/23/18 00:45 Ur Specific [place] >= 1.030 (1.005-1.030) 11/23/18 00:45 Urine Protein NEGATIVE mg/dL (NEGATIVE) 11/23/18 00:45 Urine Glucose (UA) NEGATIVE mg/dL (NEGATIVE) 11/23/18 00:45 Urine Ketones NEGATIVE mg/dL (NEGATIVE) 11/23/18 00:45 Urine Blood TRACE (NEGATIVE) 11/23/18 00:45 Urine Nitrate NEGATIVE (NEGATIVE) 11/23/18 00:45 Urine Bilirubin NEGATIVE (NEGATIVE) 11/23/18 00:45 Urine Urobilinogen 0.2 E.U./dL (0.2 - 1.0) 11/23/18 00:45 Ur Leukocyte Esterase MODERATE (NEGATIVE) H 11/23/18 00:45 Urine RBC 0-2 /hpf (0-5) 11/23/18 00:45 Urine WBC 50-100 /hpf (0-5) H 11/23/18 00:45 Ur Epithelial Cells MODERATE /lpf (FEW) 11/23/18 00:45 Urine Bacteria FEW /hpf (NONE SEEN) 11/23/18 00:45 Salicylates < 25.0 mg/L (30.0-100.0) L 11/23/18 10:38 Urine Opiates Screen NEGATIVE (NEGATIVE) 11/23/18 00:45 Urine Methadone Screen NEGATIVE (NEGATIVE) 11/23/18 00:45 Acetaminophen < 10.0 ug/mL (10.0-30.0) L 11/23/18 10:38 Ur Barbiturates Screen NEGATIVE (NEGATIVE) 11/23/18 00:45 Ur Tricyclics Screen NEGATIVE (NEGATIVE) 11/23/18 00:45 Ur Phencyclidine Scrn NEGATIVE (NEGATIVE) 11/23/18 00:45 Amphetamines Screen NEGATIVE (NEGATIVE) 11/23/18 00:45 U Methamphetamines Scrn NEGATIVE (NEGATIVE) 11/23/18 00:45 U Benzodiazepines Scrn NEGATIVE (NEGATIVE) 11/23/18 00:45 U Cocaine Metab Screen NEGATIVE (NEGATIVE) 11/23/18 00:45 U Cannabinoids Screen NEGATIVE (NEGATIVE) 11/23/18 00:45 Ethyl Alcohol < 10 mg/dL (0-10) 11/23/18 10:38 RPR NONREACTIVE (NONREACTIVE) 11/23/18 10:38 - Physical Exam Vitals and I&O: Vital Signs Temp 97.5 F 12/01/18 05:52 Pulse 64 12/01/18 05:52 Resp 20 12/01/18 05:52 BP 120/66 12/01/18 05:52 Pulse Ox 95 12/01/18 05:52 Intake & Output 11/30/18 12/01/18 12/01/18 18:59 06:59 18:59 Other: Stool Characteristics Soft Soft Soft Active Medications: Current Medications Acetaminophen (Tylenol) 650 mg PO Q4HR PRN PRN Reason: Mild Pain / Temp above 100 Stop: 01/22/19 13:46 Last Admin: 11/28/18 14:44 Dose: 650 mg Acetaminophen (Tylenol) 325 mg PO Q4HR PRN PRN Reason: Pain (Moderate) Stop: 01/22/19 15:15 Last Admin: 12/01/18 02:14 Dose: 325 mg Acetaminophen (Tylenol Extra Strength) 1,000 mg PO Q4HR PRN PRN Reason: Pain (Moderate) Stop: 01/22/19 15:15 Last Admin: 11/24/18 08:49 Dose: 1,000 mg Al Hydrox/Mg Hydrox/Simethicone (Maalox) 30 ml PO Q4HR PRN PRN Reason: GI DISTRESS Stop: 01/22/19 13:46 Atorvastatin Calcium (Lipitor) 20 mg PO HS [facility] Stop: 01/22/19 20:59 Last Admin: 11/30/18 21:21 Dose: 20 mg Bisacodyl (Dulcolax 10 Mg Supp) 10 mg RC DAILY PRN PRN Reason: IF MOM INEFFECTIVE Stop: 01/22/19 15:15 Donepezil HCl (Aricept) 5 mg PO DAILY MATT Stop: 01/26/19 08:59 Last Admin: 11/30/18 08:26 Dose: 5 mg Latanoprost (Xalatan 0.005% Ophth Soln) 1 drop EACH EYE QPM [facility] Stop: 01/22/19 16:59 Last Admin: 11/30/18 16:47 Dose: 1 drop Lisinopril (Zestril) 10 mg PO DAILY [facility] Stop: 01/23/19 08:59 Last Admin: 11/30/18 08:26 Dose: Not Given Lorazepam (Ativan) 0.5 mg PO Q4HR PRN; Protocol PRN Reason: Agitation Stop: 12/23/18 13:46 Last Admin: 11/24/18 21:16 Dose: 0.5 mg Magnesium Hydroxide (Milk Of Magnesia) 30 ml PO HS PRN PRN Reason: Constipation Magnesium Hydroxide (Milk Of Magnesia) 30 ml PO DAILY PRN PRN Reason: Constipation Stop: 01/22/19 15:15 Memantine (Namenda) 5 mg PO DAILY MATT Stop: 01/24/19 08:59 Last Admin: 11/30/18 08:26 Dose: 5 mg Multivitamins/Vitamin C (Theragran) 1 tab PO DAILY [facility]ATT Stop: 01/23/19 08:59 Last Admin: 11/30/18 08:26 Dose: 1 tab Sodium Phosphate (Fleet Enema) 135 ml RC DAILY PRN PRN Reason: IF DULCOLAX INEFFECTIVE Stop: 01/22/19 15:15 Zolpidem Tartrate (Ambien) 5 mg PO HS PRN PRN Reason: Insomnia Stop: 01/22/19 13:46 Last Admin: 11/30/18 21:21 Dose: 5 mg General: Alert, No acute distress HEENT: Atraumatic, PERRLA Neck: Supple Cardiovascular: Regular rate, Normal S1, Normal S2 Lungs: Clear to auscultation Abdomen: Bowel sounds Extremities: no Clubbing, no Cyanosis, no Edema Assessment/Plan - Assessment Assessment: psychosis HTN UTI +ESBL Hyperlipidemia Depression/Anxiety - Plan Plan: [facility] will continue home meds. Nutritional Asmnt/Malnutr-PDOC - Dietary Evaluation Malnutrition Findings (Please click <Entered> for more info): Nutritional Asmnt/Malnutrition Start: 11/26/18 17: 13 Text: Status: Complete Freq: Protocol: Document 11/26/18 17:13 LCHENG (Rec: 11/26/18 17:22 LCHENG [id number]) Nutritional Asmnt/Malnutrition Patient General Information Nutritional Screening Moderate Risk Diagnosis psychosis Pertinent Medical Hx/Surgical Hx HTN, hyperlipidemia, anxiety, depression, psychosis Subjective Information Pt seen in her room, confused. Per EMR, PO intake 75% Current Diet Order/ Nutrition Support regular Pertinent Medications lipitor, theragran Pertinent Labs 2/5 reviewed Nutritional Hx/Data Height 1.68 m Height (Calculated Centimeters) 167.6 Current Weight (lbs) 68.039 kg Weight (Calculated Kilograms) 68.0 Weight (Calculated Grams) 90118.9 [place] Body Weight 130 Body Mass Index (BMI) 24.2 Weight Status Approriate GI Symptoms GI Symptoms None Last BM not indicated Difficult in: None Skin Integrity/Comment: intact Current %PO Good (75-100%) Estimated Nutritional Goals BEE in Kcals: Using Current wt Calories/Kcals/Kg 25-30 Kcals Calculated 7083-8010 Protein: Using Current wt Protein g/k Protein Calculated 68 Fluid: ml 1700-2040ml (1ml/kcal) Nutritional Problem No current Nutrition Prob Problem N/A Malnutrition Alert Is there a minimum of two criteria No selected? Query Text:Check all the applicable criteria. A minimum of two criteria are recommended for diagnosis of either severe or non-severe malnutrition. Malnutrition Related to Morbid Obesity Malnutrition related to morbid obesity No Intervention/Recommendation Comments 1. Continue with current diet as ordered. 2. Monitor PO intake, wt, labs and skin integrity 3. F/U as low risk in 7 days Expected Outcomes/Goals Expected Outcomes/Goals 1. PO intake to meet at least 75% of nutritional needs. 2. Wt stability, skin to remain intact, labs to approach WNL.
[2018-12-01] MEDS: Multivitamin Tab PO SCH (10:04)
--- NOTE | 2018-12-01 13:10 | Progress Notes ---
DATE: 11/30/2018 SUBJECTIVE: The patient remains confused, disoriented, nonsensical, unable to care for basic needs, has been very violent and agitated, but significantly calmer, AO to name only, does not know where she is or what is going on, unable to have any type of self-care planning discussion. We are trying to confirm and verify placement, better med compliance, sleeping fairly well and mostly keeps to herself. ASSESSMENT: The patient is confused, disoriented, likely at her baseline, calm, no aggression. PLAN: We are pending placement, pending a safe discharge plan given her grave disability. JOB# [id number]
--- NOTE | 2018-12-01 22:16 | Discharge Summary ---
DATE OF DISCHARGE: 12/01/2018 HISTORY OF PRESENT ILLNESS: An 78-year-old female with history of dementia, coming to the Emergency Room, violent, aggressive, agitated, pacing, nonsensical, very confused, poor historian. PAST PSYCHIATRIC HISTORY: Dementia. SOCIAL HISTORY: [facility]. Daughter involved. I spoke with daughter over the phone on 11/30/2018 at length. MEDICATIONS: Noted. PROVISIONAL DIAGNOSIS: Dementia, dementia with behaviors, hospital delirium, anxiety, unspecified. MEDICAL: Please see full H and P. HOSPITAL COURSE: After initial assessment, the patient started on medications Namenda and Aricept. Over the course of treatment she was calm, cooperative, daughter noting bouts of UTI, which caused her to decompensate. The patient is calm, cooperative, friendly, just AO to name only. CONDITION UPON DISCHARGE: Improved, allowing ADLs. Mood "okay." Affect flat. Thought processes were confused. No SI, no HI. No psychosis. Better impulse control. PROVISIONAL DIAGNOSES: Dementia, dementia with behaviors. MEDICAL: Please see full H and P. PROGNOSIS: The patient follows up with outpatient mental health services and remains compliant with treatment. Prognosis will improve, otherwise guarded. JOB# [id number]
== END 2018-12-01 13:50 | DRG 885 ==
LOC: ER 21:29 → GERO2 11-23 11:38 → GERO 11-29 18:39 → GERO2 11-29 21:12
PROVIDERS: ADMIT Psychiatry & Neurology Psychiatry; ATTEND Psychiatry & Neurology Psychiatry
DX: F29 Unspecified psychosis not due to a substance or known physiological condition (principal); N39.0 Urinary tract infection, site not specified; F03.91 Unspecified dementia, unspecified severity, with behavioral disturbance; F41.9 Anxiety disorder, unspecified; E78.5 Hyperlipidemia, unspecified; I10 Essential (primary) hypertension; B96.89 Other specified bacterial agents as the cause of diseases classified elsewhere; Z16.12 Extended spectrum beta lactamase (ESBL) resistance
CPT/HCPCS: 36415-UA; 80053-TC; 80061-TC; 80307; 80320-TC; 80329-TC; 81001-TC; 83036-90; 84443-TC; 84484-TC; 85025-TC; 86592-TC; 87086-90; 93005; G0410; Z7610